=== PATIENT | female | born 1935 | race Caucasian/White ===

== ENCOUNTER 2022-03-20 12:57 | Emergency (ER) | payer OTHER, BC ==
[2022-03-20 13:11] VITALS: BMI 28.5
[2022-03-20 16:04] LABS: BASO % 0.3 % (0-2.0); EOS % 2.6 % (0-4.5); HEMATOCRIT 38.8 % (32.4-45.2); HEMOGLOBIN 13.1 GM/dL (10.7-15.3); LYMPH % 22.3 % (8-40); MCH 29.7 pg (25.7-33.7); MCHC 33.8 g/dl (32.0-36.0); MEAN CELL VOLUME 87.9 fl (80-96); MEAN PLT VOLUME 7.1 fl (7.5-11.1); MONO % 9.3 % (3.8-10.2); NEUT % 65.5 % (42.8-82.8); PLATELET COUNT 223 10^3/uL (134-434); RBC 4.41 M/mm3 (3.60-5.2); RDW 13.4 % (11.6-15.6); WHITE BLOOD COUNT 6.9 K/mm3 (4.0-10.0)
[2022-03-20 16:21] LABS: ALBUMIN 3.5 g/dl (3.4-5.0); CALCIUM 9.9 mg/dL (8.5-10.1)
[2022-03-20 16:22] LABS: BLOOD UREA NITROGEN 13.3 mg/dL (7-18); MAGNESIUM 2.3 mg/dL (1.8-2.4)
[2022-03-20 16:24] LABS: CREATININE 0.7 mg/dL (0.55-1.3)
[2022-03-20 16:26] LABS: BILIRUBIN,TOTAL 0.4 mg/dL (0.2-1); TOT PROT 7.2 g/dl (6.4-8.2)
[2022-03-20 17:38] LABS: EPI CELLS 12 /uL (0-25.1); HYALINE CASTS 0 /uL (0-3.1); PH,URINE 6.5 (5.0-8.0); URINE APPEARANCE CLEAR; URINE BACTERIA 689 /uL (0-1359); URINE BILIRUBIN NEGATIVE (NEGATIVE); URINE COLOR YELLOW; URINE GLUCOSE (UA) NEGATIVE (NEGATIVE); URINE KETONE NEGATIVE (NEGATIVE); URINE LEUK ESTERASE 2+ (NEGATIVE); URINE NITRITE NEGATIVE (NEGATIVE); URINE PROTEIN NEGATIVE (NEGATIVE); URINE RBC 13 /uL (0-23.9); URINE UROBILINOGEN 0.2 mg/dL (0.2-1.0); URINE WBC 52 /uL (0-25.8)
[2022-03-20 17:39] VITALS: BP 112/74; PULSE 84; TEMP 98.4
== END 2022-03-20 17:39 | disposition home or self-care (01) ==
LOC: JER 12:57
DX: R10.84 Generalized abdominal pain (principal)
CPT/HCPCS: 36415; 74176-TC; 80053; 81003; 83690; 83735; 85025; 87086; 99284-25

== ENCOUNTER 2022-03-27 18:29 | Emergency (ER) | payer OTHER, BC ==
[2022-03-27 18:39] VITALS: BP 113/70; PULSE 97; TEMP 98.7; BMI 27.4
[2022-03-27] MEDS ORDERED: LORazepam 2 MG TABLET PO ONE (19:57)
== END 2022-03-27 20:47 | disposition left against medical advice (07) ==
LOC: JER 18:29
DX: R00.2 Palpitations (principal)
CPT/HCPCS: 71045-TC-FY; 93005; 93010; 99284-25

== ENCOUNTER 2022-08-29 13:53 | Inpatient (IN) | payer OTHER, BC ==
[2022-08-29] MEDS ORDERED: morphine CARPU-JECT 4 MG/1 ML DISP.SYRIN IVPUSH ONE ×2 (14:27→20:44)
[2022-08-29] MEDS ORDERED: SODIUM CHLORIDE 500 ML IV STA (14:27)
[2022-08-29] MEDS ORDERED: morphine SULFATE 4 MG/ML VIAL ONE ×2 (14:31→20:52)
[2022-08-29 17:36] LABS: VENOUS BASE EXCESS -3.9 mmol/L (-2-2); VENOUS O2 SATURATION 28.9 % (70-80); VENOUS PH 7.327 (7.310-7.410)
[2022-08-29 17:46] LABS: HEMATOCRIT 30.6 % (32.4-45.2); HEMOGLOBIN 10.5 GM/dL (10.7-15.3); MCH 32.6 pg (25.7-33.7); MCHC 34.3 g/dl (32.0-36.0); MEAN CELL VOLUME 94.9 fl (80-96); MEAN PLT VOLUME 7.3 fl (7.5-11.1); PLATELET COUNT 126 10^3/uL (134-434); RBC 3.23 M/mm3 (3.60-5.2); RDW 17.9 % (11.6-15.6); WHITE BLOOD COUNT 8.5 K/mm3 (4.0-10.0)
[2022-08-29 17:54] LABS: INR 1.37 (0.83-1.09); PROTHROMBIN TIME (PATIENT) 15.8 SEC (9.7-13.0)
[2022-08-29 17:56] LABS: ACTIVATED PTT 30.7 SECONDS (25.2-36.5)
[2022-08-29 18:03] LABS: ALBUMIN 3.2 g/dl (3.4-5.0); BLOOD UREA NITROGEN 17.5 mg/dL (7-18); MAGNESIUM 1.9 mg/dL (1.8-2.4)
[2022-08-29 18:05] LABS: CREATININE 0.8 mg/dL (0.55-1.3)
[2022-08-29 18:06] LABS: PHOSPHOROUS 3.5 mg/dL (2.5-4.9)
[2022-08-29 18:07] LABS: BILIRUBIN,TOTAL 0.4 mg/dL (0.2-1); TOT PROT 6.7 g/dl (6.4-8.2)
[2022-08-29 18:13] LABS: LACTIC ACID 2.6 mmol/L (0.4-2.0)
[2022-08-29 18:55] LABS: ANISOCYTOSIS 1+; MACROCYTOSIS 0
[2022-08-29 20:12] LABS: BLOOD UREA NITROGEN 20.2 mg/dL (7-18); CALCIUM 9.2 mg/dL (8.5-10.1)
[2022-08-29 20:13] LABS: ALBUMIN 3.6 g/dl (3.4-5.0)
[2022-08-29 20:16] LABS: CREATININE 0.9 mg/dL (0.55-1.3)
[2022-08-29 20:17] LABS: BILIRUBIN,TOTAL 0.4 mg/dL (0.2-1); TOT PROT 6.9 g/dl (6.4-8.2)
[2022-08-29 22:47] LABS: LACTIC ACID 3.7 mmol/L (0.4-2.0)
[2022-08-29] MEDS ORDERED: LACTATED RINGERS SOLUTION 1,000 ML IV SCH (23:00)
[2022-08-29] MEDS ORDERED: ACETAMINOPHEN 1000 MG/100 ML BAG IVPB PRN (23:07)
[2022-08-29] MEDS ORDERED: SODIUM CHLORIDE 1,000 ML IV SCH (23:45)
[2022-08-29] MEDS ORDERED: INSULIN SLIDING SCALE (NOVOLOG) 1 VIAL SQ SCH (23:45)
[2022-08-30] MEDS ORDERED: INSULIN (NOVOLOG) ASPART 100 UNITS/ML 10ML VIAL SQ ONE (00:04)
[2022-08-30] MEDS ORDERED: LORazepam 0.5 MG TABLET PO PRN (01:10)
[2022-08-30 05:18] LABS: LACTIC ACID 3.5 mmol/L (0.4-2.0)
[2022-08-30] MEDS ORDERED: ACETAMINOPHEN INJECTION 100 ML IVPB ONE (05:45)
[2022-08-30] MEDS ORDERED: LORazepam 0.5 MG TABLET ONE (08:24)
[2022-08-30] MEDS ORDERED: LORazepam 2 MG/ML SDV VIAL IVPUSH PRN ×2 (08:49→16:35)
[2022-08-30] MEDS ORDERED: ceFAZolin 2 GRAM PREMIX BAG IVPB ONE (09:15)
[2022-08-30] MEDS ORDERED: APIXABAN 2.5 MG TABLET PO SCH (10:00)
[2022-08-30] MEDS ORDERED: MIDAZOLAM HCL 2 MG/2 ML SINGLE DOSE VIAL ONE (13:19)
[2022-08-30] MEDS ORDERED: ROCURONIUM BROMIDE 50 MG/5 ML SYRINGE ONE ×2 (13:19→14:44)
[2022-08-30] MEDS ORDERED: PROPOFOL 40 ML ONE (13:19)
[2022-08-30] MEDS ORDERED: CEFTRIAXONE 1 GM in DEXTROSE 5%-WATER - 50 ML IVPB ONE (14:00)
[2022-08-30] MEDS ORDERED: cefTRIAXone SODIUM 1 GM VIAL IVPB ONE (14:04)
[2022-08-30] MEDS ORDERED: ONDANSETRON 4 MG/2 ML VIAL ONE (14:49)
[2022-08-30] MEDS ORDERED: POVIDONE-IODINE OINTMENT 10% - 28.4 GM TUBE ONE (15:03)
[2022-08-30] MEDS ORDERED: PROMETHAZINE HCL 25 MG/1 ML VIAL IVPUSH PRN ×2 (15:18→16:35)
[2022-08-30] MEDS ORDERED: ONDANSETRON 4 MG/2 ML VIAL IVPUSH PRN ×4 (15:18→16:35)
[2022-08-30] MEDS ORDERED: NEOSTIGMINE METHYLSULFATE 0.5 MG/ML - 10 ML MDV ONE (15:22)
[2022-08-30] MEDS ORDERED: GLYCOPYRROLATE 0.2 MG/1 ML VIAL ONE (15:22)
[2022-08-30] MEDS ORDERED: PROMETHAZINE HCL 25 MG/1 ML VIAL IVPB PRN ×2 (15:24→16:35)
[2022-08-30] MEDS ORDERED: DEXAMETHASONE SOD PHOSPHATE 4 MG/1 ML VIAL IVPUSH PRN ×2 (15:24→16:35)
[2022-08-30] MEDS ORDERED: LACTATED RINGERS SOLUTION 1,000 ML IV SCH (15:30)
[2022-08-30] MEDS ORDERED: HYDROmorphone *PCA* 10MG/50ML DISP.SYRIN PCA SCH (15:30)
[2022-08-30] MEDS ORDERED: METOPROLOL TARTRATE 5 MG/5 ML VIAL ONE (15:37)
[2022-08-30] MEDS ORDERED: HYDROmorphone *PCA* 10MG/50ML DISP.SYRIN ONE (16:27)
[2022-08-30] MEDS ORDERED: ACETAMINOPHEN 1000 MG/100 ML BAG IVPB PRN (16:35)
[2022-08-30] MEDS ORDERED: HYDROmorphone *PCA* 10MG/50ML DISP.SYRIN PCA ONE (16:35)
[2022-08-30] MEDS ORDERED: LORazepam 0.5 MG TABLET PO SCH (22:00)
[2022-08-30 22:22] VITALS: BMI 24.3
[2022-08-31] MEDS: SODIUM CHLORIDE 1,000 ML IV SCH ×2 (04:12→13:00)
[2022-08-31] MEDS: HEPARIN NA (PORCINE) 5,000 UNITS/ML 1ML VIAL SQ SCH (05:58)
[2022-08-31] MEDS: PIPERACILLIN/TAZOB 3.375 GM 3.375 GM in DEXTROSE 5%-WATER - 50 ML IVPB SCH ×3 (05:58→23:16)
[2022-08-31 07:31] LABS: BASO % 0.1 % (0-2.0); HEMATOCRIT 21.1 % (32.4-45.2); HEMOGLOBIN 7.2 GM/dL (10.7-15.3); LYMPH % 5.6 % (8-40); MCH 32.1 pg (25.7-33.7); MCHC 34.1 g/dl (32.0-36.0); MEAN PLT VOLUME 6.6 fl (7.5-11.1); MONO % 9.8 % (3.8-10.2); NEUT % 84.5 % (42.8-82.8); PLATELET COUNT 90 10^3/uL (134-434); RBC 2.25 M/mm3 (3.60-5.2); RDW 18.2 % (11.6-15.6); WHITE BLOOD COUNT 11.8 K/mm3 (4.0-10.0)
[2022-08-31 07:50] LABS: CALCIUM 8.2 mg/dL (8.5-10.1)
[2022-08-31 07:51] LABS: BLOOD UREA NITROGEN 32.7 mg/dL (7-18); MAGNESIUM 1.9 mg/dL (1.8-2.4)
[2022-08-31 07:54] LABS: BILIRUBIN,TOTAL 0.3 mg/dL (0.2-1); CREATININE 0.9 mg/dL (0.55-1.3); PHOSPHOROUS 3.8 mg/dL (2.5-4.9)
[2022-08-31 07:56] LABS: ALBUMIN 2.3 g/dl (3.4-5.0); TOT PROT 4.8 g/dl (6.4-8.2)
[2022-08-31] MEDS: HYDROmorphone *PCA* 10MG/50ML DISP.SYRIN PCA SCH (17:29)
[2022-08-31 18:26] LABS: BASO % 0.1 % (0-2.0); HEMATOCRIT 28.2 % (32.4-45.2); HEMOGLOBIN 9.8 GM/dL (10.7-15.3); LYMPH % 6.9 % (8-40); MCHC 34.8 g/dl (32.0-36.0); MEAN CELL VOLUME 91.9 fl (80-96); MEAN PLT VOLUME 6.6 fl (7.5-11.1); MONO % 9.1 % (3.8-10.2); NEUT % 83.9 % (42.8-82.8); PLATELET COUNT 79 10^3/uL (134-434); RBC 3.06 M/mm3 (3.60-5.2); RDW 18.5 % (11.6-15.6); WHITE BLOOD COUNT 9.3 K/mm3 (4.0-10.0)
[2022-08-31] MEDS ORDERED: HEPARIN NA (PORCINE) 5,000 UNITS/ML 1ML VIAL SQ SCH (22:00)
[2022-09-01] MEDS: PIPERACILLIN/TAZOB 3.375 GM 3.375 GM in DEXTROSE 5%-WATER - 50 ML IVPB SCH ×3 (06:12→22:19)
[2022-09-01] MEDS ORDERED: LORazepam 2 MG/ML SDV VIAL IVPUSH PRN (08:00)
[2022-09-01] MEDS ORDERED: ACETAMINOPHEN 1000 MG/100 ML BAG IVPB PRN (08:00)
[2022-09-01] MEDS ORDERED: PROMETHAZINE HCL 25 MG/1 ML VIAL IVPB PRN (08:00)
[2022-09-01] MEDS ORDERED: DEXAMETHASONE SOD PHOSPHATE 4 MG/1 ML VIAL IVPUSH PRN (08:00)
[2022-09-01 09:49] LABS: HEMATOCRIT 26.4 % (32.4-45.2); HEMOGLOBIN 9.2 GM/dL (10.7-15.3); LYMPH % 7.6 % (8-40); MCH 31.9 pg (25.7-33.7); MCHC 34.8 g/dl (32.0-36.0); MEAN CELL VOLUME 91.5 fl (80-96); MEAN PLT VOLUME 6.4 fl (7.5-11.1); MONO % 7.8 % (3.8-10.2); NEUT % 84.6 % (42.8-82.8); PLATELET COUNT 77 10^3/uL (134-434); RBC 2.88 M/mm3 (3.60-5.2); RDW 18.4 % (11.6-15.6); WHITE BLOOD COUNT 9.2 K/mm3 (4.0-10.0)
[2022-09-01] MEDS ORDERED: APIXABAN 2.5 MG TABLET PO SCH (10:00)
[2022-09-01 10:16] LABS: ALBUMIN 2.2 g/dl (3.4-5.0); BLOOD UREA NITROGEN 17.5 mg/dL (7-18); CALCIUM 7.8 mg/dL (8.5-10.1); CREATININE 0.5 mg/dL (0.55-1.3)
[2022-09-01 10:18] LABS: BILIRUBIN,TOTAL 0.7 mg/dL (0.2-1); TOT PROT 4.8 g/dl (6.4-8.2)
[2022-09-01] MEDS: APIXABAN 2.5 MG TABLET PO SCH ×4 (11:57→22:19)
[2022-09-01] MEDS: SODIUM CHLORIDE 1,000 ML IV SCH (11:57)
[2022-09-01] MEDS: HYDROmorphone *PCA* 10MG/50ML DISP.SYRIN PCA SCH (23:10)
[2022-09-02] MEDS: PIPERACILLIN/TAZOB 3.375 GM 3.375 GM in DEXTROSE 5%-WATER - 50 ML IVPB SCH ×3 (06:10→21:45)
[2022-09-02] MEDS: HYDROmorphone *PCA* 10MG/50ML DISP.SYRIN PCA SCH ×2 (08:00→16:43)
[2022-09-02 09:39] LABS: BASO % 0.1 % (0-2.0); EOS % 0.2 % (0-4.5); HEMOGLOBIN 10.1 GM/dL (10.7-15.3); LYMPH % 8.2 % (8-40); MCH 31.2 pg (25.7-33.7); MCHC 33.8 g/dl (32.0-36.0); MEAN CELL VOLUME 92.3 fl (80-96); MEAN PLT VOLUME 6.6 fl (7.5-11.1); MONO % 6.3 % (3.8-10.2); NEUT % 85.2 % (42.8-82.8); PLATELET COUNT 92 10^3/uL (134-434); RBC 3.25 M/mm3 (3.60-5.2); RDW 17.9 % (11.6-15.6)
[2022-09-02 10:05] LABS: ALBUMIN 2.5 g/dl (3.4-5.0)
[2022-09-02 10:07] LABS: BLOOD UREA NITROGEN 19.6 mg/dL (7-18); CALCIUM 8.4 mg/dL (8.5-10.1)
[2022-09-02 10:11] LABS: CREATININE 0.6 mg/dL (0.55-1.3)
[2022-09-02 10:12] LABS: TOT PROT 5.5 g/dl (6.4-8.2)
[2022-09-02] MEDS: SODIUM CHLORIDE 1,000 ML IV SCH ×2 (10:37→16:43)
[2022-09-02] MEDS: APIXABAN 2.5 MG TABLET PO SCH (12:07)
[2022-09-02] MEDS: HEPARIN NA (PORCINE) 5,000 UNITS/ML 1ML VIAL SQ SCH (16:38)
[2022-09-02] MEDS: ACETAMINOPHEN 325 MG TABLET (FP) PO SCH ×2 (17:19→21:44)
[2022-09-02] MEDS: APIXABAN 2.5 MG TABLET NGT SCH (21:44)
[2022-09-03] MEDS: ACETAMINOPHEN 325 MG TABLET (FP) PO SCH ×6 (01:39→22:11)
[2022-09-03] MEDS: PIPERACILLIN/TAZOB 3.375 GM 3.375 GM in DEXTROSE 5%-WATER - 50 ML IVPB SCH ×3 (06:08→22:12)
[2022-09-03] MEDS: HYDROmorphone *PCA* 10MG/50ML DISP.SYRIN PCA SCH ×2 (10:24→23:56)
[2022-09-03] MEDS: SODIUM CHLORIDE 1,000 ML IV SCH (10:24)
[2022-09-03] MEDS: APIXABAN 2.5 MG TABLET NGT SCH ×2 (10:24→22:13)
[2022-09-04] MEDS: ACETAMINOPHEN 325 MG TABLET (FP) PO SCH ×7 (01:23→22:14)
[2022-09-04] MEDS ORDERED: MAG HYDROX/AL HYDROX/SIMETH 30 ML UNIT-DOSE CUP PO ONE (03:04)
[2022-09-04] MEDS: SODIUM CHLORIDE 1,000 ML IV SCH ×2 (03:28→20:59)
[2022-09-04] MEDS: PIPERACILLIN/TAZOB 3.375 GM 3.375 GM in DEXTROSE 5%-WATER - 50 ML IVPB SCH ×3 (05:52→22:09)
[2022-09-04] MEDS: HYDROmorphone *PCA* 10MG/50ML DISP.SYRIN PCA SCH (08:00)
[2022-09-04] MEDS: APIXABAN 2.5 MG TABLET NGT SCH ×2 (09:27→22:14)
[2022-09-04 11:21] LABS: BASO % 0.1 % (0-2.0); EOS % 2.6 % (0-4.5); HEMATOCRIT 26.8 % (32.4-45.2); HEMOGLOBIN 9.1 GM/dL (10.7-15.3); LYMPH % 11.2 % (8-40); MCH 31.5 pg (25.7-33.7); MCHC 34.1 g/dl (32.0-36.0); MEAN CELL VOLUME 92.4 fl (80-96); MEAN PLT VOLUME 6.7 fl (7.5-11.1); MONO % 7.9 % (3.8-10.2); NEUT % 78.2 % (42.8-82.8); PLATELET COUNT 89 10^3/uL (134-434); RDW 17.4 % (11.6-15.6); WHITE BLOOD COUNT 5.5 K/mm3 (4.0-10.0)
[2022-09-04 12:14] LABS: CALCIUM 8.4 mg/dL (8.5-10.1)
[2022-09-04 12:15] LABS: ALBUMIN 2.3 g/dl (3.4-5.0); BLOOD UREA NITROGEN 15.7 mg/dL (7-18)
[2022-09-04 12:17] LABS: CREATININE 0.5 mg/dL (0.55-1.3)
[2022-09-04 12:19] LABS: BILIRUBIN,TOTAL 0.9 mg/dL (0.2-1); TOT PROT 5.2 g/dl (6.4-8.2)
[2022-09-04] MEDS: ONDANSETRON 4 MG/2 ML VIAL IVPUSH PRN (20:58)
[2022-09-05] MEDS: ACETAMINOPHEN 325 MG TABLET (FP) PO SCH ×6 (01:46→21:17)
[2022-09-05] MEDS: PIPERACILLIN/TAZOB 3.375 GM 3.375 GM in DEXTROSE 5%-WATER - 50 ML IVPB SCH (06:48)
[2022-09-05] MEDS: LACTOBACILLUS ACIDOPHILUS 1 TABLET PO SCH (09:38)
[2022-09-05] MEDS: APIXABAN 2.5 MG TABLET NGT SCH ×2 (09:39→21:17)
[2022-09-05] MEDS: SODIUM CHLORIDE 1,000 ML IV SCH (09:39)
[2022-09-05 09:56] LABS: BASO % 0.4 % (0-2.0); EOS % 2.4 % (0-4.5); HEMATOCRIT 28.8 % (32.4-45.2); HEMOGLOBIN 9.9 GM/dL (10.7-15.3); MCH 31.5 pg (25.7-33.7); MCHC 34.4 g/dl (32.0-36.0); MEAN CELL VOLUME 91.8 fl (80-96); MEAN PLT VOLUME 6.9 fl (7.5-11.1); MONO % 5.3 % (3.8-10.2); NEUT % 80.9 % (42.8-82.8); PLATELET COUNT 101 10^3/uL (134-434); RBC 3.14 M/mm3 (3.60-5.2); RDW 17.2 % (11.6-15.6); WHITE BLOOD COUNT 5.7 K/mm3 (4.0-10.0)
[2022-09-05 10:26] LABS: BLOOD UREA NITROGEN 10.4 mg/dL (7-18); CALCIUM 8.2 mg/dL (8.5-10.1)
[2022-09-05 10:27] LABS: ALBUMIN 2.4 g/dl (3.4-5.0); MAGNESIUM 1.6 mg/dL (1.8-2.4)
[2022-09-05 10:30] LABS: BILIRUBIN,TOTAL 0.8 mg/dL (0.2-1); CREATININE 0.5 mg/dL (0.55-1.3)
[2022-09-05 10:31] LABS: TOT PROT 5.5 g/dl (6.4-8.2)
[2022-09-05] MEDS: oxyCODONE HCL 5 MG TABLET PO PRN (14:30)
[2022-09-05] MEDS: ACETAMINOPHEN 325 MG TABLET (FP) PO PRN (14:31)
[2022-09-06] MEDS ORDERED: MELATONIN 5 MG TABLETS PO ONE ×2 (00:20→23:13)
[2022-09-06] MEDS: ACETAMINOPHEN 325 MG TABLET (FP) PO SCH ×3 (00:38→10:12)
[2022-09-06] MEDS: oxyCODONE HCL 5 MG TABLET PO PRN ×3 (09:19→20:22)
[2022-09-06 10:07] LABS: BASO % 0.5 % (0-2.0); EOS % 2.8 % (0-4.5); HEMATOCRIT 20.7 % (32.4-45.2); HEMOGLOBIN 7.3 GM/dL (10.7-15.3); LYMPH % 16.3 % (8-40); MCH 32.2 pg (25.7-33.7); MCHC 35.2 g/dl (32.0-36.0); MEAN CELL VOLUME 91.4 fl (80-96); MEAN PLT VOLUME 7.1 fl (7.5-11.1); MONO % 7.6 % (3.8-10.2); NEUT % 72.8 % (42.8-82.8); PLATELET COUNT 88 10^3/uL (134-434); RBC 2.26 M/mm3 (3.60-5.2); RDW 16.9 % (11.6-15.6)
[2022-09-06] MEDS: APIXABAN 2.5 MG TABLET NGT SCH (10:12)
[2022-09-06] MEDS: LACTOBACILLUS ACIDOPHILUS 1 TABLET PO SCH (10:12)
[2022-09-06] MEDS: SODIUM CHLORIDE 1,000 ML IV SCH (10:14)
[2022-09-06 10:31] LABS: CALCIUM 7.8 mg/dL (8.5-10.1)
[2022-09-06 10:32] LABS: BLOOD UREA NITROGEN 16.4 mg/dL (7-18)
[2022-09-06 10:34] LABS: MAGNESIUM 1.5 mg/dL (1.8-2.4)
[2022-09-06 10:36] LABS: ALBUMIN 2.1 g/dl (3.4-5.0)
[2022-09-06 10:37] LABS: CREATININE 0.3 mg/dL (0.55-1.3)
[2022-09-06 10:38] LABS: PHOSPHOROUS 1.8 mg/dL (2.5-4.9)
[2022-09-06 10:39] LABS: BILIRUBIN,TOTAL 0.4 mg/dL (0.2-1); TOT PROT 4.7 g/dl (6.4-8.2)
[2022-09-06] MEDS ORDERED: MAGNESIUM SULF 50% (8.12 MEQ/2 ML-1 GM VIAL) IVPB ONE (13:06)
[2022-09-06] MEDS ORDERED: POTASSIUM PHOSPHATE 30 MM in SODIUM CHLORIDE 500 ML IVPB ONE (13:06)
[2022-09-06] MEDS ORDERED: PSYLLIUM 5.85 GM PACKET PO SCH (14:00)
[2022-09-06] MEDS ORDERED: MAGNESIUM 2GM/50ML STERILE WATER IVPB IVPB ONE (14:30)
[2022-09-06] MEDS: ACETAMINOPHEN 325 MG TABLET (FP) PO PRN (15:13)
[2022-09-06 15:48] LABS: BASO % 0.3 % (0-2.0); HEMATOCRIT 21.1 % (32.4-45.2); HEMOGLOBIN 7.3 GM/dL (10.7-15.3); LYMPH % 15.4 % (8-40); MCH 31.7 pg (25.7-33.7); MCHC 34.3 g/dl (32.0-36.0); MEAN CELL VOLUME 92.2 fl (80-96); MONO % 9.6 % (3.8-10.2); NEUT % 72.7 % (42.8-82.8); PLATELET COUNT 82 10^3/uL (134-434); RBC 2.29 M/mm3 (3.60-5.2); RDW 16.9 % (11.6-15.6); WHITE BLOOD COUNT 4.2 K/mm3 (4.0-10.0)
[2022-09-06] MEDS: PANTOPRAZOLE SODIUM 40 MG VIAL IVPUSH SCH (22:58)
[2022-09-07] MEDS: oxyCODONE HCL 5 MG TABLET PO PRN ×3 (02:41→20:13)
[2022-09-07] MEDS: ACETAMINOPHEN 325 MG TABLET (FP) PO PRN (06:48)
[2022-09-07] MEDS: LACTOBACILLUS ACIDOPHILUS 1 TABLET PO SCH (09:37)
[2022-09-07] MEDS: PANTOPRAZOLE SODIUM 40 MG VIAL IVPUSH SCH ×2 (09:37→22:14)
[2022-09-07] MEDS ORDERED: oxyCODONE HCL 5 MG TABLET PO ONE (12:45)
[2022-09-07 13:09] LABS: BASO % 0.6 % (0-2.0); HEMATOCRIT 27.5 % (32.4-45.2); HEMOGLOBIN 9.6 GM/dL (10.7-15.3); LYMPH % 18.7 % (8-40); MCH 31.5 pg (25.7-33.7); MEAN CELL VOLUME 89.9 fl (80-96); MEAN PLT VOLUME 7.3 fl (7.5-11.1); MONO % 6.7 % (3.8-10.2); PLATELET COUNT 80 10^3/uL (134-434); RBC 3.06 M/mm3 (3.60-5.2); RDW 16.2 % (11.6-15.6); WHITE BLOOD COUNT 5.5 K/mm3 (4.0-10.0)
[2022-09-07 13:20] LABS: ALBUMIN 2.3 g/dl (3.4-5.0); BLOOD UREA NITROGEN 17.5 mg/dL (7-18); CALCIUM 8.1 mg/dL (8.5-10.1); MAGNESIUM 1.7 mg/dL (1.8-2.4)
[2022-09-07 13:24] LABS: CREATININE 0.4 mg/dL (0.55-1.3); PHOSPHOROUS 2.3 mg/dL (2.5-4.9)
[2022-09-07 13:25] LABS: BILIRUBIN,TOTAL 1.9 mg/dL (0.2-1); TOT PROT 4.9 g/dl (6.4-8.2)
[2022-09-07] MEDS ORDERED: POTASSIUM PHOSPHATE 15 MM in SODIUM CHLORIDE 250 ML IVPB ONE (13:26)
[2022-09-07] MEDS ORDERED: MAGNESIUM SULF 50% (8.12 MEQ/2 ML-1 GM VIAL) IVPB ONE (13:30)
[2022-09-07] MEDS ORDERED: ACETAMINOPHEN 325 MG TABLET (FP) PO PRN (14:35)
[2022-09-07] MEDS ORDERED: POTASSIUM PHOSPHATE 15 MM in DEXTROSE 5%-WATER - 250 ML IVPB ONE (15:00)
[2022-09-07] MEDS ORDERED: ACETAMINOPHEN 1000 MG/100 ML BAG IVPB ONE (23:59)
[2022-09-08] MEDS ORDERED: MELATONIN 5 MG TABLETS PO ONE
[2022-09-08] MEDS: ONDANSETRON 4 MG/2 ML VIAL IVPUSH PRN (06:22)
[2022-09-08] MEDS: PANTOPRAZOLE SODIUM 40 MG VIAL IVPUSH SCH ×2 (09:42→21:36)
[2022-09-08] MEDS: LACTOBACILLUS ACIDOPHILUS 1 TABLET PO SCH (09:43)
[2022-09-08] MEDS: oxyCODONE HCL 5 MG TABLET PO PRN ×4 (09:55→23:50)
[2022-09-08 10:06] LABS: BASO % 0.4 % (0-2.0); EOS % 1.7 % (0-4.5); HEMATOCRIT 25.8 % (32.4-45.2); HEMOGLOBIN 9.1 GM/dL (10.7-15.3); LYMPH % 14.4 % (8-40); MCH 31.8 pg (25.7-33.7); MCHC 35.2 g/dl (32.0-36.0); MEAN CELL VOLUME 90.1 fl (80-96); MEAN PLT VOLUME 7.3 fl (7.5-11.1); MONO % 6.3 % (3.8-10.2); NEUT % 77.2 % (42.8-82.8); PLATELET COUNT 87 10^3/uL (134-434); RBC 2.86 M/mm3 (3.60-5.2); RDW 15.9 % (11.6-15.6); WHITE BLOOD COUNT 5.9 K/mm3 (4.0-10.0)
[2022-09-08 10:20] LABS: CALCIUM 8.3 mg/dL (8.5-10.1)
[2022-09-08 10:21] LABS: ALBUMIN 2.3 g/dl (3.4-5.0); BLOOD UREA NITROGEN 11.9 mg/dL (7-18)
[2022-09-08 10:23] LABS: PHOSPHOROUS 2.6 mg/dL (2.5-4.9)
[2022-09-08 10:24] LABS: BILIRUBIN,TOTAL 0.7 mg/dL (0.2-1); CREATININE 0.4 mg/dL (0.55-1.3)
[2022-09-08 16:32] LABS: PH,URINE 6.5 (5.0-8.0); URINE APPEARANCE CLEAR; URINE BILIRUBIN NEGATIVE (NEGATIVE); URINE COLOR YELLOW; URINE GLUCOSE (UA) NEGATIVE (NEGATIVE); URINE KETONE NEGATIVE (NEGATIVE); URINE LEUK ESTERASE NEGATIVE (NEGATIVE); URINE NITRITE NEGATIVE (NEGATIVE); URINE PROTEIN NEGATIVE (NEGATIVE)
[2022-09-08 16:38] LABS: EPI CELLS 17 /uL (0-25.1); HYALINE CASTS 0 /uL (0-3.1); URINE BACTERIA 57 /uL (0-1359); URINE RBC 11 /uL (0-23.9); URINE WBC 4 /uL (0-25.8)
[2022-09-09] MEDS: oxyCODONE HCL 5 MG TABLET PO PRN ×4 (03:37→17:29)
[2022-09-09] MEDS: ACETAMINOPHEN 325 MG TABLET (FP) PO SCH ×3 (09:12→19:57)
[2022-09-09] MEDS: PANTOPRAZOLE SODIUM 40 MG VIAL IVPUSH SCH (09:12)
[2022-09-09] MEDS: POLYETHYLENE GLYCOL (HEALTHYLAX) 3350 17 GM PACKET PO SCH ×2 (09:12→10:05)
[2022-09-09] MEDS: SIMETHICONE 80 MG TAB.CHEW (FP) PO SCH ×4 (09:13→21:38)
[2022-09-09] MEDS: LACTOBACILLUS ACIDOPHILUS 1 TABLET PO SCH (09:13)
[2022-09-09] MEDS: DOCUSATE SODIUM 100 MG CAPSULE (FP) PO SCH ×3 (09:13→21:37)
[2022-09-09] MEDS ORDERED: oxyCODONE HCL 5 MG TABLET PO PRN (11:30)
[2022-09-09] MEDS: traMADol HCL 50 MG TABLET PO PRN (21:38)
[2022-09-09] MEDS: APIXABAN 2.5 MG TABLET PO SCH (21:40)
[2022-09-10] MEDS: oxyCODONE HCL 5 MG TABLET PO PRN ×4 (00:10→23:33)
[2022-09-10] MEDS: ACETAMINOPHEN 325 MG TABLET (FP) PO SCH ×4 (02:11→20:17)
[2022-09-10 09:51] LABS: BASO % 0.5 % (0-2.0); EOS % 2.1 % (0-4.5); HEMATOCRIT 26.5 % (32.4-45.2); HEMOGLOBIN 9.3 GM/dL (10.7-15.3); LYMPH % 13.9 % (8-40); MCH 32.5 pg (25.7-33.7); MCHC 35.1 g/dl (32.0-36.0); MEAN CELL VOLUME 92.9 fl (80-96); MEAN PLT VOLUME 7.5 fl (7.5-11.1); MONO % 6.8 % (3.8-10.2); NEUT % 76.7 % (42.8-82.8); PLATELET COUNT 98 10^3/uL (134-434); RBC 2.85 M/mm3 (3.60-5.2); RDW 16.2 % (11.6-15.6); WHITE BLOOD COUNT 6.6 K/mm3 (4.0-10.0)
[2022-09-10 09:56] LABS: CALCIUM 8.7 mg/dL (8.5-10.1)
[2022-09-10 09:57] LABS: ALBUMIN 2.7 g/dl (3.4-5.0); MAGNESIUM 1.8 mg/dL (1.8-2.4)
[2022-09-10 10:00] LABS: CREATININE 0.5 mg/dL (0.55-1.3)
[2022-09-10] MEDS ORDERED: LORazepam 0.5 MG TABLET PO SCH (10:00)
[2022-09-10 10:02] LABS: BILIRUBIN,TOTAL 0.5 mg/dL (0.2-1); TOT PROT 5.6 g/dl (6.4-8.2)
[2022-09-10] MEDS: LACTATED RINGERS SOLUTION 1,000 ML/1,000 ML INFUS.BAG IV SCH (11:11)
[2022-09-10] MEDS: POLYETHYLENE GLYCOL (HEALTHYLAX) 3350 17 GM PACKET PO SCH (11:12)
[2022-09-10] MEDS: SIMETHICONE 80 MG TAB.CHEW (FP) PO SCH ×4 (11:13→21:36)
[2022-09-10] MEDS: PANTOPRAZOLE 40 MG TABLET PO SCH (11:13)
[2022-09-10] MEDS: LORazepam 0.5 MG TABLET PO SCH ×2 (11:13→21:36)
[2022-09-10] MEDS: DOCUSATE SODIUM 100 MG CAPSULE (FP) PO SCH ×2 (11:13→21:36)
[2022-09-10] MEDS: APIXABAN 2.5 MG TABLET PO SCH ×2 (11:13→21:36)
[2022-09-10] MEDS: LACTOBACILLUS ACIDOPHILUS 1 TABLET PO SCH (11:13)
[2022-09-10] MEDS: traMADol HCL 50 MG TABLET PO PRN ×2 (11:52→18:14)
[2022-09-10 22:11] VITALS: RESP 20
[2022-09-11] MEDS: LACTATED RINGERS SOLUTION 1,000 ML/1,000 ML INFUS.BAG IV SCH (01:04)
[2022-09-11] MEDS: ACETAMINOPHEN 325 MG TABLET (FP) PO SCH ×4 (02:10→22:56)
[2022-09-11] MEDS: oxyCODONE HCL 5 MG TABLET PO PRN ×3 (08:09→20:24)
[2022-09-11 09:18] LABS: BASO % 0.4 % (0-2.0); EOS % 1.6 % (0-4.5); HEMATOCRIT 24.7 % (32.4-45.2); HEMOGLOBIN 8.7 GM/dL (10.7-15.3); LYMPH % 11.1 % (8-40); MCH 32.5 pg (25.7-33.7); MEAN CELL VOLUME 92.7 fl (80-96); MEAN PLT VOLUME 7.6 fl (7.5-11.1); NEUT % 79.9 % (42.8-82.8); PLATELET COUNT 98 10^3/uL (134-434); RBC 2.67 M/mm3 (3.60-5.2); RDW 16.3 % (11.6-15.6); WHITE BLOOD COUNT 6.1 K/mm3 (4.0-10.0)
[2022-09-11] MEDS: LACTOBACILLUS ACIDOPHILUS 1 TABLET PO SCH (09:26)
[2022-09-11] MEDS: APIXABAN 2.5 MG TABLET PO SCH ×2 (09:26→22:58)
[2022-09-11] MEDS: LORazepam 0.5 MG TABLET PO SCH ×2 (09:26→22:57)
[2022-09-11] MEDS: POLYETHYLENE GLYCOL (HEALTHYLAX) 3350 17 GM PACKET PO SCH ×3 (09:26→22:59)
[2022-09-11] MEDS: DOCUSATE SODIUM 100 MG CAPSULE (FP) PO SCH ×2 (09:26→22:58)
[2022-09-11] MEDS: PANTOPRAZOLE 40 MG TABLET PO SCH (09:26)
[2022-09-11] MEDS: traMADol HCL 50 MG TABLET PO PRN (22:58)
[2022-09-12] MEDS: ACETAMINOPHEN 325 MG TABLET (FP) PO SCH ×4 (02:52→19:56)
[2022-09-12] MEDS: oxyCODONE HCL 5 MG TABLET PO PRN ×3 (02:53→22:32)
[2022-09-12] MEDS: POLYETHYLENE GLYCOL (HEALTHYLAX) 3350 17 GM PACKET PO SCH ×3 (05:47→22:33)
[2022-09-12 09:34] LABS: BASO % 0.8 % (0-2.0); EOS % 1.6 % (0-4.5); HEMATOCRIT 23.3 % (32.4-45.2); HEMOGLOBIN 7.9 GM/dL (10.7-15.3); LYMPH % 13.7 % (8-40); MCH 31.9 pg (25.7-33.7); MCHC 34.1 g/dl (32.0-36.0); MEAN CELL VOLUME 93.7 fl (80-96); MEAN PLT VOLUME 8.6 fl (7.5-11.1); MONO % 6.6 % (3.8-10.2); NEUT % 77.3 % (42.8-82.8); PLATELET COUNT 112 10^3/uL (134-434); RBC 2.49 M/mm3 (3.60-5.2); RDW 16.2 % (11.6-15.6)
[2022-09-12 09:55] LABS: BLOOD UREA NITROGEN 17.8 mg/dL (7-18)
[2022-09-12] MEDS: APIXABAN 2.5 MG TABLET PO SCH ×2 (09:55→22:32)
[2022-09-12] MEDS: DOCUSATE SODIUM 100 MG CAPSULE (FP) PO SCH ×2 (09:55→22:33)
[2022-09-12] MEDS: PANTOPRAZOLE 40 MG TABLET PO SCH (09:55)
[2022-09-12] MEDS: LORazepam 0.5 MG TABLET PO SCH ×2 (09:55→22:32)
[2022-09-12] MEDS: LACTOBACILLUS ACIDOPHILUS 1 TABLET PO SCH (09:55)
[2022-09-12 09:59] LABS: CALCIUM 8.2 mg/dL (8.5-10.1); MAGNESIUM 1.8 mg/dL (1.8-2.4)
[2022-09-12 10:01] LABS: CREATININE 0.6 mg/dL (0.55-1.3)
[2022-09-12 10:05] LABS: PHOSPHOROUS 2.4 mg/dL (2.5-4.9)
[2022-09-12] MEDS: traMADol HCL 50 MG TABLET PO PRN (15:17)
[2022-09-13] MEDS: ACETAMINOPHEN 325 MG TABLET (FP) PO SCH ×4 (02:29→13:21)
[2022-09-13] MEDS: oxyCODONE HCL 5 MG TABLET PO PRN ×3 (04:49→16:40)
[2022-09-13] MEDS: POLYETHYLENE GLYCOL (HEALTHYLAX) 3350 17 GM PACKET PO SCH ×2 (05:03→13:21)
[2022-09-13] MEDS: APIXABAN 2.5 MG TABLET PO SCH (09:52)
[2022-09-13] MEDS: PANTOPRAZOLE 40 MG TABLET PO SCH (09:52)
[2022-09-13] MEDS: DOCUSATE SODIUM 100 MG CAPSULE (FP) PO SCH (09:52)
[2022-09-13] MEDS: LACTOBACILLUS ACIDOPHILUS 1 TABLET PO SCH (09:52)
[2022-09-13] MEDS: LORazepam 0.5 MG TABLET PO SCH (09:52)
[2022-09-13 10:25] LABS: BASO % 0.4 % (0-2.0); EOS % 3.8 % (0-4.5); HEMOGLOBIN 7.9 GM/dL (10.7-15.3); LYMPH % 23.3 % (8-40); MCH 32.1 pg (25.7-33.7); MCHC 34.4 g/dl (32.0-36.0); MEAN CELL VOLUME 93.4 fl (80-96); MEAN PLT VOLUME 7.6 fl (7.5-11.1); NEUT % 58.5 % (42.8-82.8); PLATELET COUNT 113 10^3/uL (134-434); RBC 2.46 M/mm3 (3.60-5.2); RDW 16.1 % (11.6-15.6); WHITE BLOOD COUNT 2.8 K/mm3 (4.0-10.0)
[2022-09-13 10:33] VITALS: TEMP 97.6
[2022-09-13 12:39] LABS: ALBUMIN 2.3 g/dl (3.4-5.0); BILIRUBIN,TOTAL 0.4 mg/dL (0.2-1); BLOOD UREA NITROGEN 16.1 mg/dL (7-18); CALCIUM 8.5 mg/dL (8.5-10.1); CREATININE 0.5 mg/dL (0.55-1.3); TOT PROT 5.3 g/dl (6.4-8.2)
[2022-09-13] MEDS: traMADol HCL 50 MG TABLET PO PRN (13:55)
[2022-09-13 16:15] VITALS: BP 115/62; PULSE 98
== END 2022-09-13 18:33 | disposition home health service (06) | DRG 330 ==
LOC: JER 13:53 → JERBED 18:20 → JICU 08-30 20:56 → J8W 08-31 20:50
PROVIDERS: ADMIT Internal Medicine
PROC: 0DTH0ZZ Resection of Cecum, Open Approach (ICD-10-PCS; principal; 2022-08-30 12:00)
PROC: 30233N1 Transfusion of Nonautologous Red Blood Cells into Peripheral Vein, Percutaneous Approach (ICD-10-PCS; 2022-08-31)
DX: K56.2 Volvulus (principal); D62 Acute posthemorrhagic anemia; K92.1 Melena; R64 Cachexia; C54.1 Malignant neoplasm of endometrium; D63.0 Anemia in neoplastic disease; D69.6 Thrombocytopenia, unspecified; R19.00 Intra-abdominal and pelvic swelling, mass and lump, unspecified site; F41.8 Other specified anxiety disorders; K59.00 Constipation, unspecified; E78.5 Hyperlipidemia, unspecified; Z68.24 Body mass index [BMI] 24.0-24.9, adult
CPT/HCPCS: 36415; 36430; 71045-TC-FY; 74018-TC-FY; 74175-TC; 76705-TC; 80048; 80053; 81003; 82272; 82803; 82962; 83605; 83690; 83735; 84100; 84484; 85025; 85610; 85730; 86850; 86900; 86901; 86922; 87086; 87186; 87324; 87449; 88307-TC; 93005; 93010; 94010; 94760; 97116-GP; 97161-GP; 99291; C9803-CS; J1644; P9058; Q9967; U0003; U0005

== ENCOUNTER 2022-09-17 10:06 | Inpatient (IN) | payer OTHER, BC ==
[2022-09-17] MEDS ORDERED: ONDANSETRON 4 MG/2 ML VIAL IVPUSH ONE (10:42)
[2022-09-17] MEDS ORDERED: morphine CARPU-JECT 4 MG/1 ML DISP.SYRIN IVPUSH ONE (10:42)
[2022-09-17] MEDS ORDERED: ONDANSETRON 4 MG/2 ML VIAL ONE (11:00)
[2022-09-17] MEDS ORDERED: morphine SULFATE 4 MG/ML VIAL ONE (11:00)
[2022-09-17 11:19] LABS: BASO % 0.2 % (0-2.0); EOS % 0.6 % (0-4.5); HEMATOCRIT 26.4 % (32.4-45.2); HEMOGLOBIN 9.1 GM/dL (10.7-15.3); LYMPH % 17.3 % (8-40); MCH 31.9 pg (25.7-33.7); MCHC 34.3 g/dl (32.0-36.0); MEAN PLT VOLUME 6.7 fl (7.5-11.1); MONO % 13.6 % (3.8-10.2); NEUT % 68.3 % (42.8-82.8); PLATELET COUNT 194 10^3/uL (134-434); RBC 2.84 M/mm3 (3.60-5.2); RDW 16.4 % (11.6-15.6); WHITE BLOOD COUNT 3.6 K/mm3 (4.0-10.0)
[2022-09-17 11:26] LABS: INR 1.34 (0.83-1.09); PROTHROMBIN TIME (PATIENT) 15.4 SEC (9.7-13.0)
[2022-09-17 11:28] LABS: ACTIVATED PTT 34.8 SECONDS (25.2-36.5)
[2022-09-17 11:46] LABS: CALCIUM 8.7 mg/dL (8.5-10.1)
[2022-09-17 11:48] LABS: BLOOD UREA NITROGEN 18.8 mg/dL (7-18)
[2022-09-17 11:50] LABS: CREATININE 0.5 mg/dL (0.55-1.3)
[2022-09-17 11:52] LABS: BILIRUBIN,TOTAL 0.3 mg/dL (0.2-1); TOT PROT 6.6 g/dl (6.4-8.2)
[2022-09-17 11:55] LABS: ALBUMIN 2.9 g/dl (3.4-5.0)
[2022-09-17] MEDS ORDERED: morphine CARPU-JECT 2 MG/1 ML DISP.SYRIN IVPUSH ONE (11:56)
[2022-09-17] MEDS ORDERED: ACETAMINOPHEN 1000 MG/100 ML BAG IVPB ONE (15:26)
[2022-09-17] MEDS ORDERED: ACETAMINOPHEN INJECTION 100 ML IVPB ONE (15:28)
[2022-09-17] MEDS: DOCUSATE SODIUM 100 MG CAPSULE (FP) PO SCH (22:32)
[2022-09-17] MEDS: APIXABAN 2.5 MG TABLET PO SCH (22:32)
[2022-09-17] MEDS: POLYETHYLENE GLYCOL (HEALTHYLAX) 3350 17 GM PACKET PO SCH (22:34)
[2022-09-18] MEDS: LORazepam 0.5 MG TABLET PO PRN (02:28)
[2022-09-18] MEDS: POLYETHYLENE GLYCOL (HEALTHYLAX) 3350 17 GM PACKET PO SCH ×3 (06:36→22:02)
[2022-09-18 08:29] LABS: BASO % 0.6 % (0-2.0); LYMPH % 22.6 % (8-40); MCH 32.1 pg (25.7-33.7); MCHC 34.9 g/dl (32.0-36.0); MEAN CELL VOLUME 91.9 fl (80-96); MEAN PLT VOLUME 6.9 fl (7.5-11.1); MONO % 14.3 % (3.8-10.2); NEUT % 60.5 % (42.8-82.8); PLATELET COUNT 165 10^3/uL (134-434); RBC 2.51 M/mm3 (3.60-5.2); WHITE BLOOD COUNT 3.1 K/mm3 (4.0-10.0)
[2022-09-18] MEDS: ONDANSETRON 4 MG/2 ML VIAL IVPUSH PRN (08:42)
[2022-09-18 08:46] LABS: CALCIUM 8.5 mg/dL (8.5-10.1)
[2022-09-18 08:47] LABS: ALBUMIN 2.4 g/dl (3.4-5.0); BLOOD UREA NITROGEN 13.8 mg/dL (7-18); MAGNESIUM 1.9 mg/dL (1.8-2.4)
[2022-09-18 08:49] LABS: CREATININE 0.5 mg/dL (0.55-1.3)
[2022-09-18 08:51] LABS: BILIRUBIN,TOTAL 0.4 mg/dL (0.2-1); TOT PROT 5.5 g/dl (6.4-8.2)
[2022-09-18] MEDS: APIXABAN 2.5 MG TABLET PO SCH ×2 (09:37→22:01)
[2022-09-18] MEDS: LACTOBACILLUS ACIDOPHILUS 1 TABLET PO SCH (09:37)
[2022-09-18] MEDS: DOCUSATE SODIUM 100 MG CAPSULE (FP) PO SCH ×2 (09:37→22:01)
[2022-09-18] MEDS: oxyCODONE HCL 5 MG TABLET PO PRN ×3 (10:08→22:01)
[2022-09-18] MEDS ORDERED: SIMETHICONE 80 MG TAB.CHEW (FP) PO PRN (17:21)
[2022-09-18] MEDS: MAG HYDROX/AL HYDROX/SIMETH 30 ML UNIT-DOSE CUP PO SCH (18:16)
[2022-09-19] MEDS: MAG HYDROX/AL HYDROX/SIMETH 30 ML UNIT-DOSE CUP PO SCH ×4 (00:36→17:46)
[2022-09-19] MEDS: POLYETHYLENE GLYCOL (HEALTHYLAX) 3350 17 GM PACKET PO SCH ×3 (06:28→21:56)
[2022-09-19] MEDS: DOCUSATE SODIUM 100 MG CAPSULE (FP) PO SCH ×3 (09:05→21:55)
[2022-09-19] MEDS: APIXABAN 2.5 MG TABLET PO SCH (09:05)
[2022-09-19] MEDS: LACTOBACILLUS ACIDOPHILUS 1 TABLET PO SCH (09:06)
[2022-09-19] MEDS: ONDANSETRON 4 MG/2 ML VIAL IVPUSH PRN (09:06)
[2022-09-19] MEDS: oxyCODONE HCL 5 MG TABLET PO PRN ×2 (11:33→18:57)
[2022-09-19] MEDS: LACTATED RINGERS SOLUTION 1,000 ML/1,000 ML INFUS.BAG IV SCH (19:05)
[2022-09-19 19:48] LABS: BASO % 0.2 % (0-2.0); EOS % 1.1 % (0-4.5); HEMATOCRIT 25.5 % (32.4-45.2); HEMOGLOBIN 8.6 GM/dL (10.7-15.3); LYMPH % 16.2 % (8-40); MCHC 33.5 g/dl (32.0-36.0); MEAN CELL VOLUME 92.7 fl (80-96); MEAN PLT VOLUME 7.1 fl (7.5-11.1); MONO % 9.2 % (3.8-10.2); NEUT % 73.3 % (42.8-82.8); PLATELET COUNT 237 10^3/uL (134-434); RBC 2.75 M/mm3 (3.60-5.2); RDW 16.4 % (11.6-15.6); WHITE BLOOD COUNT 6.1 K/mm3 (4.0-10.0)
[2022-09-20] MEDS: MAG HYDROX/AL HYDROX/SIMETH 30 ML UNIT-DOSE CUP PO SCH ×4 (00:11→17:42)
[2022-09-20] MEDS: LACTATED RINGERS SOLUTION 1,000 ML/1,000 ML INFUS.BAG IV SCH ×2 (06:36→21:59)
[2022-09-20] MEDS: POLYETHYLENE GLYCOL (HEALTHYLAX) 3350 17 GM PACKET PO SCH ×3 (07:13→21:59)
[2022-09-20 07:20] LABS: WHITE BLOOD COUNT 5.4 K/mm3 (4.0-10.0)
[2022-09-20 07:28] LABS: BASO % 0.2 % (0-2.0); EOS % 0.8 % (0-4.5); HEMATOCRIT 23.4 % (32.4-45.2); LYMPH % 16.5 % (8-40); MCH 31.4 pg (25.7-33.7); MCHC 34.1 g/dl (32.0-36.0); MEAN PLT VOLUME 7.2 fl (7.5-11.1); MONO % 9.8 % (3.8-10.2); NEUT % 72.7 % (42.8-82.8); PLATELET COUNT 184 10^3/uL (134-434); RBC 2.55 M/mm3 (3.60-5.2); RDW 16.1 % (11.6-15.6)
[2022-09-20 07:44] LABS: ALBUMIN 2.6 g/dl (3.4-5.0); BLOOD UREA NITROGEN 18.7 mg/dL (7-18); CALCIUM 8.8 mg/dL (8.5-10.1)
[2022-09-20 07:48] LABS: CREATININE 0.5 mg/dL (0.55-1.3)
[2022-09-20 07:49] LABS: BILIRUBIN,TOTAL 1.1 mg/dL (0.2-1); TOT PROT 5.7 g/dl (6.4-8.2)
[2022-09-20] MEDS: LORazepam 0.5 MG TABLET PO PRN ×2 (08:23→17:43)
[2022-09-20 09:06] LABS: ANISOCYTOSIS 0; MACROCYTOSIS 0
[2022-09-20] MEDS: LACTOBACILLUS ACIDOPHILUS 1 TABLET PO SCH (09:13)
[2022-09-20] MEDS: DOCUSATE SODIUM 100 MG CAPSULE (FP) PO SCH ×2 (09:13→21:59)
[2022-09-20] MEDS: PORTA CATH FLUSH 10 ML IVPUSH PRN ×2 (10:00→17:56)
[2022-09-20] MEDS: ONDANSETRON 4 MG/2 ML VIAL IVPUSH PRN (14:46)
[2022-09-20 15:18] LABS: BODY FLUID MONOCYTE 6 %
[2022-09-20] MEDS: oxyCODONE HCL 5 MG TABLET PO PRN (17:43)
[2022-09-20] MEDS: APIXABAN 2.5 MG TABLET PO SCH (21:59)
[2022-09-21] MEDS: MAG HYDROX/AL HYDROX/SIMETH 30 ML UNIT-DOSE CUP PO SCH ×5 (01:05→19:09)
[2022-09-21] MEDS: oxyCODONE HCL 5 MG TABLET PO PRN (01:57)
[2022-09-21] MEDS: POLYETHYLENE GLYCOL (HEALTHYLAX) 3350 17 GM PACKET PO SCH ×3 (06:05→22:21)
[2022-09-21] MEDS: LORazepam 0.5 MG TABLET PO PRN ×2 (08:21→20:14)
[2022-09-21] MEDS: LACTOBACILLUS ACIDOPHILUS 1 TABLET PO SCH (10:20)
[2022-09-21] MEDS: DOCUSATE SODIUM 100 MG CAPSULE (FP) PO SCH ×2 (10:21→22:21)
[2022-09-21] MEDS: APIXABAN 2.5 MG TABLET PO SCH ×2 (10:21→22:22)
[2022-09-21] MEDS ORDERED: LACTATED RINGERS SOLUTION 1,000 ML/1,000 ML INFUS.BAG IV ONE (10:48)
[2022-09-21] MEDS: ONDANSETRON 4 MG/2 ML VIAL IVPUSH PRN (11:30)
[2022-09-21] MEDS: LACTATED RINGERS SOLUTION 1,000 ML/1,000 ML INFUS.BAG IV SCH ×2 (12:18→18:12)
[2022-09-21] MEDS: AMPICILLIN NA/SULBACTAM NA 1.5 GM in SODIUM CHLORIDE 100 ML IVPB SCH ×2 (15:25→21:21)
[2022-09-21] MEDS: PORTA CATH FLUSH 10 ML IVPUSH PRN (15:50)
[2022-09-22] MEDS: MAG HYDROX/AL HYDROX/SIMETH 30 ML UNIT-DOSE CUP PO SCH ×4 (00:21→17:14)
[2022-09-22] MEDS: AMPICILLIN NA/SULBACTAM NA 1.5 GM in SODIUM CHLORIDE 100 ML IVPB SCH ×4 (02:34→22:36)
[2022-09-22] MEDS: oxyCODONE HCL 5 MG TABLET PO PRN ×3 (02:43→20:07)
[2022-09-22] MEDS: LACTATED RINGERS SOLUTION 1,000 ML/1,000 ML INFUS.BAG IV SCH ×3 (04:54→16:40)
[2022-09-22] MEDS: POLYETHYLENE GLYCOL (HEALTHYLAX) 3350 17 GM PACKET PO SCH (05:00)
[2022-09-22 09:01] LABS: ALBUMIN 2.4 g/dl (3.4-5.0); BLOOD UREA NITROGEN 12.3 mg/dL (7-18); CALCIUM 8.6 mg/dL (8.5-10.1); MAGNESIUM 1.9 mg/dL (1.8-2.4)
[2022-09-22 09:04] LABS: CREATININE 0.4 mg/dL (0.55-1.3); PHOSPHOROUS 2.5 mg/dL (2.5-4.9)
[2022-09-22 09:06] LABS: BILIRUBIN,TOTAL 0.3 mg/dL (0.2-1); TOT PROT 5.3 g/dl (6.4-8.2)
[2022-09-22] MEDS ORDERED: SODIUM CHLORIDE 500 ML IV STA (09:30)
[2022-09-22] MEDS ORDERED: POLYETHYLENE GLYCOL (HEALTHYLAX) 3350 17 GM PACKET PO PRN (09:31)
[2022-09-22] MEDS: DOCUSATE SODIUM 100 MG CAPSULE (FP) PO SCH ×2 (10:07→22:36)
[2022-09-22] MEDS: APIXABAN 2.5 MG TABLET PO SCH ×2 (10:07→22:36)
[2022-09-22] MEDS: LACTOBACILLUS ACIDOPHILUS 1 TABLET PO SCH (10:07)
[2022-09-22 12:07] LABS: BODY FLUID ALBUMIN 1.9 g/dL (Not Estab.)
[2022-09-22 13:07] LABS: BODY FLUID ALBUMIN 1.8 g/dL (Not Estab.)
[2022-09-23] MEDS: LORazepam 0.5 MG TABLET PO PRN (01:14)
[2022-09-23] MEDS: MAG HYDROX/AL HYDROX/SIMETH 30 ML UNIT-DOSE CUP PO SCH ×6 (02:16→23:31)
[2022-09-23] MEDS: LACTATED RINGERS SOLUTION 1,000 ML/1,000 ML INFUS.BAG IV SCH ×3 (02:43→15:42)
[2022-09-23] MEDS: AMPICILLIN NA/SULBACTAM NA 1.5 GM in SODIUM CHLORIDE 100 ML IVPB SCH ×4 (02:49→20:15)
[2022-09-23] MEDS: oxyCODONE HCL 5 MG TABLET PO PRN ×3 (04:01→20:14)
[2022-09-23 09:14] LABS: BASO % 0.4 % (0-2.0); EOS % 1.2 % (0-4.5); HEMATOCRIT 22.7 % (32.4-45.2); HEMOGLOBIN 7.7 GM/dL (10.7-15.3); MCH 30.8 pg (25.7-33.7); MCHC 33.8 g/dl (32.0-36.0); MEAN CELL VOLUME 91.2 fl (80-96); MEAN PLT VOLUME 6.8 fl (7.5-11.1); MONO % 14.9 % (3.8-10.2); NEUT % 64.5 % (42.8-82.8); PLATELET COUNT 197 10^3/uL (134-434); RBC 2.49 M/mm3 (3.60-5.2); RDW 16.3 % (11.6-15.6); WHITE BLOOD COUNT 3.9 K/mm3 (4.0-10.0)
[2022-09-23 09:34] LABS: ALBUMIN 2.4 g/dl (3.4-5.0); BLOOD UREA NITROGEN 10.1 mg/dL (7-18); CALCIUM 8.8 mg/dL (8.5-10.1)
[2022-09-23 09:38] LABS: CREATININE 0.4 mg/dL (0.55-1.3)
[2022-09-23 09:39] LABS: BILIRUBIN,TOTAL 0.3 mg/dL (0.2-1); TOT PROT 5.4 g/dl (6.4-8.2)
[2022-09-23] MEDS: DOCUSATE SODIUM 100 MG CAPSULE (FP) PO SCH ×2 (10:30→22:44)
[2022-09-23] MEDS: LACTOBACILLUS ACIDOPHILUS 1 TABLET PO SCH (10:30)
[2022-09-23] MEDS: APIXABAN 2.5 MG TABLET PO SCH ×2 (10:31→22:44)
[2022-09-23] MEDS: ACETAMINOPHEN 325 MG TABLET (FP) PO PRN (16:50)
[2022-09-23 20:08] VITALS: BMI 22.9
[2022-09-24] MEDS: ACETAMINOPHEN 325 MG TABLET (FP) PO PRN ×2 (00:44→16:24)
[2022-09-24] MEDS: AMPICILLIN NA/SULBACTAM NA 1.5 GM in SODIUM CHLORIDE 100 ML IVPB SCH ×4 (02:01→20:58)
[2022-09-24] MEDS: LORazepam 0.5 MG TABLET PO PRN ×4 (02:20→22:05)
[2022-09-24] MEDS: LACTATED RINGERS SOLUTION 1,000 ML/1,000 ML INFUS.BAG IV SCH ×2 (02:34→15:17)
[2022-09-24] MEDS: MAG HYDROX/AL HYDROX/SIMETH 30 ML UNIT-DOSE CUP PO SCH ×3 (05:08→18:23)
[2022-09-24] MEDS: oxyCODONE HCL 5 MG TABLET PO PRN (07:33)
[2022-09-24] MEDS: DOCUSATE SODIUM 100 MG CAPSULE (FP) PO SCH ×2 (10:31→21:02)
[2022-09-24] MEDS: APIXABAN 2.5 MG TABLET PO SCH ×2 (10:31→21:02)
[2022-09-24] MEDS: LACTOBACILLUS ACIDOPHILUS 1 TABLET PO SCH (10:32)
[2022-09-24] MEDS: ONDANSETRON 4 MG/2 ML VIAL IVPUSH PRN (16:23)
[2022-09-25] MEDS: MAG HYDROX/AL HYDROX/SIMETH 30 ML UNIT-DOSE CUP PO SCH ×6 (01:24→18:37)
[2022-09-25] MEDS: ACETAMINOPHEN 325 MG TABLET (FP) PO PRN ×3 (01:24→17:56)
[2022-09-25] MEDS: AMPICILLIN NA/SULBACTAM NA 1.5 GM in SODIUM CHLORIDE 100 ML IVPB SCH ×4 (02:16→21:18)
[2022-09-25] MEDS: LACTATED RINGERS SOLUTION 1,000 ML/1,000 ML INFUS.BAG IV SCH ×2 (05:34→19:47)
[2022-09-25] MEDS: LORazepam 0.5 MG TABLET PO PRN ×3 (09:10→23:36)
[2022-09-25] MEDS: ONDANSETRON 4 MG/2 ML VIAL IVPUSH PRN ×2 (09:10→17:56)
[2022-09-25] MEDS: DOCUSATE SODIUM 100 MG CAPSULE (FP) PO SCH ×2 (10:25→21:19)
[2022-09-25] MEDS: APIXABAN 2.5 MG TABLET PO SCH ×2 (10:25→21:19)
[2022-09-25] MEDS: LACTOBACILLUS ACIDOPHILUS 1 TABLET PO SCH (10:25)
[2022-09-26] MEDS: MAG HYDROX/AL HYDROX/SIMETH 30 ML UNIT-DOSE CUP PO SCH ×6 (00:28→23:09)
[2022-09-26] MEDS: AMPICILLIN NA/SULBACTAM NA 1.5 GM in SODIUM CHLORIDE 100 ML IVPB SCH ×4 (02:13→21:16)
[2022-09-26] MEDS: oxyCODONE HCL 5 MG TABLET PO PRN (08:16)
[2022-09-26 09:24] LABS: BASO % 0.4 % (0-2.0); EOS % 0.5 % (0-4.5); HEMATOCRIT 23.4 % (32.4-45.2); HEMOGLOBIN 8.1 GM/dL (10.7-15.3); LYMPH % 15.5 % (8-40); MCHC 34.5 g/dl (32.0-36.0); MEAN CELL VOLUME 89.9 fl (80-96); MEAN PLT VOLUME 7.4 fl (7.5-11.1); MONO % 11.9 % (3.8-10.2); NEUT % 71.7 % (42.8-82.8); PLATELET COUNT 213 10^3/uL (134-434); RDW 16.5 % (11.6-15.6); WHITE BLOOD COUNT 4.5 K/mm3 (4.0-10.0)
[2022-09-26] MEDS: APIXABAN 2.5 MG TABLET PO SCH (09:31)
[2022-09-26] MEDS: DOCUSATE SODIUM 100 MG CAPSULE (FP) PO SCH ×2 (09:33→21:16)
[2022-09-26] MEDS: LACTOBACILLUS ACIDOPHILUS 1 TABLET PO SCH (09:34)
[2022-09-26 09:48] LABS: BLOOD UREA NITROGEN 7.5 mg/dL (7-18); CALCIUM 8.5 mg/dL (8.5-10.1)
[2022-09-26 09:51] LABS: CREATININE 0.5 mg/dL (0.55-1.3)
[2022-09-26] MEDS ORDERED: oxyCODONE HCL 5 MG TABLET PO PRN ×2 (13:55→13:56)
[2022-09-26] MEDS: ONDANSETRON 4 MG/2 ML VIAL IVPUSH PRN (14:10)
[2022-09-26] MEDS ORDERED: MELATONIN 5 MG TABLETS PO PRN (18:35)
[2022-09-26] MEDS: POLYETHYLENE GLYCOL (HEALTHYLAX) 3350 17 GM PACKET PO SCH (21:16)
[2022-09-26] MEDS: LORazepam 0.5 MG TABLET PO SCH (21:16)
[2022-09-26] MEDS ORDERED: MIRTAZAPINE 15 MG TABLET (FP) PO SCH (22:00)
[2022-09-27] MEDS: AMPICILLIN NA/SULBACTAM NA 1.5 GM in SODIUM CHLORIDE 100 ML IVPB SCH ×4 (01:59→20:07)
[2022-09-27] MEDS: MAG HYDROX/AL HYDROX/SIMETH 30 ML UNIT-DOSE CUP PO SCH ×3 (05:34→18:31)
[2022-09-27] MEDS ORDERED: ONDANSETRON 4 MG/2 ML VIAL ONE (10:34)
[2022-09-27] MEDS ORDERED: FENTANYL CITRATE/PF 50 MCG/ML VIAL ONE ×5 (10:34→12:12)
[2022-09-27] MEDS ORDERED: LIDOCAINE HCL 2% 100 MG/5 ML DISP.SYRIN ONE (10:34)
[2022-09-27] MEDS ORDERED: PROPOFOL 20 ML ONE (10:34)
[2022-09-27] MEDS ORDERED: DEXAMETHASONE SOD PHOSPHATE 4 MG/1 ML VIAL ONE (10:34)
[2022-09-27] MEDS ORDERED: SUCCINYLCHOLINE CHLORIDE 200 MG/10 ML SYRINGE ONE (10:35)
[2022-09-27] MEDS ORDERED: ROCURONIUM BROMIDE 50 MG/5 ML SYRINGE ONE (10:35)
[2022-09-27 10:48] LABS: BASO % 0.3 % (0-2.0); EOS % 0.3 % (0-4.5); HEMATOCRIT 22.4 % (32.4-45.2); HEMOGLOBIN 7.7 GM/dL (10.7-15.3); LYMPH % 14.9 % (8-40); MCH 30.8 pg (25.7-33.7); MCHC 34.4 g/dl (32.0-36.0); MEAN CELL VOLUME 89.6 fl (80-96); MEAN PLT VOLUME 7.6 fl (7.5-11.1); NEUT % 66.5 % (42.8-82.8); PLATELET COUNT 235 10^3/uL (134-434); RDW 16.8 % (11.6-15.6); WHITE BLOOD COUNT 5.2 K/mm3 (4.0-10.0)
[2022-09-27] MEDS ORDERED: DEXMEDETOMIDINE HCL 200 MCG/2 ML IVPB ONE (10:53)
[2022-09-27] MEDS ORDERED: KETAMINE HCL 500 MG/10 ML VIAL ONE (10:57)
[2022-09-27 11:06] LABS: CALCIUM 8.4 mg/dL (8.5-10.1)
[2022-09-27 11:07] LABS: BLOOD UREA NITROGEN 8.5 mg/dL (7-18)
[2022-09-27 11:10] LABS: CREATININE 0.4 mg/dL (0.55-1.3)
[2022-09-27] MEDS ORDERED: LACTATED RINGERS SOLUTION 1,000 ML IV SCH (11:45)
[2022-09-27] MEDS ORDERED: ONDANSETRON 4 MG/2 ML VIAL IVPUSH PRN (11:45)
[2022-09-27] MEDS ORDERED: SIMETHICONE 80 MG TAB.CHEW (FP) PO PRN (11:55)
[2022-09-27] MEDS ORDERED: ACETAMINOPHEN 325 MG TABLET (FP) PO PRN (11:55)
[2022-09-27] MEDS ORDERED: PORTA CATH FLUSH 10 ML IVPUSH PRN (11:55)
[2022-09-27] MEDS ORDERED: MELATONIN 5 MG TABLETS PO PRN (11:55)
[2022-09-27] MEDS: FENTANYL CITRATE/PF 50 MCG/ML VIAL IVPUSH PRN ×7 (11:56→12:19)
[2022-09-27] MEDS: LORazepam 0.5 MG TABLET PO SCH ×2 (15:09→21:33)
[2022-09-27] MEDS: LACTOBACILLUS ACIDOPHILUS 1 TABLET PO SCH (15:09)
[2022-09-27] MEDS: DOCUSATE SODIUM 100 MG CAPSULE (FP) PO SCH ×2 (15:10→21:33)
[2022-09-27] MEDS: POLYETHYLENE GLYCOL (HEALTHYLAX) 3350 17 GM PACKET PO SCH ×2 (15:10→21:34)
[2022-09-27] MEDS: AMINO ACIDS/PROTEIN HYDROLYS 30 ML LIQUID.PKT PO SCH (18:31)
[2022-09-27] MEDS: oxyCODONE HCL 5 MG TABLET PO PRN (20:06)
[2022-09-27] MEDS: MIRTAZAPINE 15 MG TABLET (FP) PO SCH (21:33)
[2022-09-27] MEDS: APIXABAN 2.5 MG TABLET PO SCH (21:33)
[2022-09-28] MEDS: MAG HYDROX/AL HYDROX/SIMETH 30 ML UNIT-DOSE CUP PO SCH ×5 (02:03→23:06)
[2022-09-28] MEDS: AMPICILLIN NA/SULBACTAM NA 1.5 GM in SODIUM CHLORIDE 100 ML IVPB SCH ×4 (02:03→21:22)
[2022-09-28] MEDS: AMINO ACIDS/PROTEIN HYDROLYS 30 ML LIQUID.PKT PO SCH ×2 (08:58→18:00)
[2022-09-28] MEDS: LORazepam 0.5 MG TABLET PO SCH ×2 (10:06→21:23)
[2022-09-28] MEDS: APIXABAN 2.5 MG TABLET PO SCH ×2 (10:07→21:23)
[2022-09-28] MEDS: DOCUSATE SODIUM 100 MG CAPSULE (FP) PO SCH ×2 (10:07→21:23)
[2022-09-28] MEDS: LACTOBACILLUS ACIDOPHILUS 1 TABLET PO SCH (10:07)
[2022-09-28] MEDS: POLYETHYLENE GLYCOL (HEALTHYLAX) 3350 17 GM PACKET PO SCH ×2 (10:07→21:23)
[2022-09-28] MEDS: oxyCODONE HCL 5 MG TABLET PO PRN (15:01)
[2022-09-28] MEDS: MIRTAZAPINE 15 MG TABLET (FP) PO SCH (21:23)
[2022-09-29] MEDS: AMPICILLIN NA/SULBACTAM NA 1.5 GM in SODIUM CHLORIDE 100 ML IVPB SCH ×4 (02:24→22:05)
[2022-09-29] MEDS: MAG HYDROX/AL HYDROX/SIMETH 30 ML UNIT-DOSE CUP PO SCH ×3 (05:37→18:38)
[2022-09-29] MEDS: oxyCODONE HCL 5 MG TABLET PO PRN ×3 (08:35→22:51)
[2022-09-29] MEDS: AMINO ACIDS/PROTEIN HYDROLYS 30 ML LIQUID.PKT PO SCH ×2 (08:38→18:38)
[2022-09-29 09:47] LABS: BASO % 0.4 % (0-2.0); EOS % 0.8 % (0-4.5); HEMATOCRIT 21.2 % (32.4-45.2); HEMOGLOBIN 7.4 GM/dL (10.7-15.3); LYMPH % 19.4 % (8-40); MCH 31.7 pg (25.7-33.7); MCHC 35.1 g/dl (32.0-36.0); MEAN CELL VOLUME 90.1 fl (80-96); MEAN PLT VOLUME 6.5 fl (7.5-11.1); MONO % 17.4 % (3.8-10.2); PLATELET COUNT 200 10^3/uL (134-434); RBC 2.35 M/mm3 (3.60-5.2); WHITE BLOOD COUNT 4.4 K/mm3 (4.0-10.0)
[2022-09-29 10:32] LABS: BLOOD UREA NITROGEN 9.8 mg/dL (7-18); CALCIUM 8.1 mg/dL (8.5-10.1)
[2022-09-29 10:36] LABS: CREATININE 0.4 mg/dL (0.55-1.3)
[2022-09-29] MEDS: POLYETHYLENE GLYCOL (HEALTHYLAX) 3350 17 GM PACKET PO SCH ×2 (12:58→22:07)
[2022-09-29] MEDS: LACTOBACILLUS ACIDOPHILUS 1 TABLET PO SCH (12:58)
[2022-09-29] MEDS: APIXABAN 2.5 MG TABLET PO SCH ×2 (12:59→22:07)
[2022-09-29] MEDS: LORazepam 0.5 MG TABLET PO SCH (12:59)
[2022-09-29] MEDS: DOCUSATE SODIUM 100 MG CAPSULE (FP) PO SCH ×2 (13:00→22:07)
[2022-09-29] MEDS: LORazepam 0.5 MG TABLET PO PRN (18:33)
[2022-09-29] MEDS: MIRTAZAPINE 15 MG TABLET (FP) PO SCH (22:07)
[2022-09-30] MEDS: MAG HYDROX/AL HYDROX/SIMETH 30 ML UNIT-DOSE CUP PO SCH ×4 (01:11→17:00)
[2022-09-30] MEDS: AMPICILLIN NA/SULBACTAM NA 1.5 GM in SODIUM CHLORIDE 100 ML IVPB SCH ×4 (02:04→22:09)
[2022-09-30] MEDS: oxyCODONE HCL 5 MG TABLET PO PRN (06:17)
[2022-09-30 08:25] LABS: BASO % 1.4 % (0-2.0); EOS % 1.3 % (0-4.5); HEMATOCRIT 22.1 % (32.4-45.2); HEMOGLOBIN 7.5 GM/dL (10.7-15.3); LYMPH % 16.4 % (8-40); MCH 30.7 pg (25.7-33.7); MCHC 33.9 g/dl (32.0-36.0); MEAN CELL VOLUME 90.5 fl (80-96); MEAN PLT VOLUME 6.9 fl (7.5-11.1); MONO % 16.8 % (3.8-10.2); NEUT % 64.1 % (42.8-82.8); PLATELET COUNT 207 10^3/uL (134-434); RBC 2.45 M/mm3 (3.60-5.2); RDW 16.9 % (11.6-15.6); WHITE BLOOD COUNT 4.5 K/mm3 (4.0-10.0)
[2022-09-30 08:46] LABS: CALCIUM 8.6 mg/dL (8.5-10.1)
[2022-09-30 08:47] LABS: BLOOD UREA NITROGEN 8.9 mg/dL (7-18)
[2022-09-30 08:50] LABS: CREATININE 0.3 mg/dL (0.55-1.3)
[2022-09-30] MEDS: LACTOBACILLUS ACIDOPHILUS 1 TABLET PO SCH (09:23)
[2022-09-30] MEDS: AMINO ACIDS/PROTEIN HYDROLYS 30 ML LIQUID.PKT PO SCH ×2 (09:23→16:57)
[2022-09-30] MEDS: APIXABAN 2.5 MG TABLET PO SCH ×2 (09:24→22:07)
[2022-09-30] MEDS: DOCUSATE SODIUM 100 MG CAPSULE (FP) PO SCH ×2 (09:24→22:14)
[2022-09-30] MEDS: POLYETHYLENE GLYCOL (HEALTHYLAX) 3350 17 GM PACKET PO SCH ×2 (09:24→22:14)
[2022-09-30] MEDS: LORazepam 0.5 MG TABLET PO PRN (09:35)
[2022-09-30] MEDS: MIRTAZAPINE 15 MG TABLET (FP) PO SCH (22:07)
[2022-10-01] MEDS: MAG HYDROX/AL HYDROX/SIMETH 30 ML UNIT-DOSE CUP PO SCH ×4 (01:07→19:35)
[2022-10-01] MEDS: oxyCODONE HCL 5 MG TABLET PO PRN ×2 (02:16→12:47)
[2022-10-01] MEDS: AMPICILLIN NA/SULBACTAM NA 1.5 GM in SODIUM CHLORIDE 100 ML IVPB SCH ×4 (02:17→22:43)
[2022-10-01] MEDS: AMINO ACIDS/PROTEIN HYDROLYS 30 ML LIQUID.PKT PO SCH ×2 (08:34→18:38)
[2022-10-01] MEDS: ONDANSETRON 4 MG/2 ML VIAL IVPUSH PRN (08:34)
[2022-10-01 08:38] LABS: BASO % 0.6 % (0-2.0); EOS % 0.9 % (0-4.5); HEMATOCRIT 22.5 % (32.4-45.2); HEMOGLOBIN 7.8 GM/dL (10.7-15.3); LYMPH % 14.1 % (8-40); MCH 30.9 pg (25.7-33.7); MCHC 34.4 g/dl (32.0-36.0); MEAN CELL VOLUME 89.7 fl (80-96); MEAN PLT VOLUME 6.8 fl (7.5-11.1); NEUT % 69.4 % (42.8-82.8); PLATELET COUNT 209 10^3/uL (134-434); RBC 2.51 M/mm3 (3.60-5.2); RDW 16.7 % (11.6-15.6); WHITE BLOOD COUNT 5.2 K/mm3 (4.0-10.0)
[2022-10-01 08:47] LABS: CALCIUM 8.4 mg/dL (8.5-10.1)
[2022-10-01 08:48] LABS: BLOOD UREA NITROGEN 9.4 mg/dL (7-18)
[2022-10-01 08:51] LABS: CREATININE 0.4 mg/dL (0.55-1.3)
[2022-10-01] MEDS: LACTOBACILLUS ACIDOPHILUS 1 TABLET PO SCH (10:20)
[2022-10-01] MEDS: POLYETHYLENE GLYCOL (HEALTHYLAX) 3350 17 GM PACKET PO SCH ×2 (10:20→22:45)
[2022-10-01] MEDS: DOCUSATE SODIUM 100 MG CAPSULE (FP) PO SCH ×2 (10:20→22:44)
[2022-10-01 10:33] LABS: INR 1.52 (0.83-1.09); PROTHROMBIN TIME (PATIENT) 17.5 SEC (9.7-13.0)
[2022-10-01 10:36] LABS: ACTIVATED PTT 32.4 SECONDS (25.2-36.5)
[2022-10-01] MEDS: APIXABAN 2.5 MG TABLET PO SCH ×2 (11:55→22:44)
[2022-10-01] MEDS: MIRTAZAPINE 15 MG TABLET (FP) PO SCH (22:45)
[2022-10-02] MEDS: MAG HYDROX/AL HYDROX/SIMETH 30 ML UNIT-DOSE CUP PO SCH ×4 (01:12→17:53)
[2022-10-02] MEDS: oxyCODONE HCL 5 MG TABLET PO PRN ×3 (02:01→23:50)
[2022-10-02] MEDS: AMPICILLIN NA/SULBACTAM NA 1.5 GM in SODIUM CHLORIDE 100 ML IVPB SCH ×4 (02:03→20:23)
[2022-10-02] MEDS: LACTOBACILLUS ACIDOPHILUS 1 TABLET PO SCH (10:24)
[2022-10-02] MEDS: APIXABAN 2.5 MG TABLET PO SCH ×2 (10:24→22:36)
[2022-10-02] MEDS: AMINO ACIDS/PROTEIN HYDROLYS 30 ML LIQUID.PKT PO SCH (10:24)
[2022-10-02] MEDS: POLYETHYLENE GLYCOL (HEALTHYLAX) 3350 17 GM PACKET PO SCH ×3 (10:24→22:41)
[2022-10-02] MEDS: DOCUSATE SODIUM 100 MG CAPSULE (FP) PO SCH ×3 (10:25→22:36)
[2022-10-02 13:15] LABS: BASO % 0.4 % (0-2.0); EOS % 0.9 % (0-4.5); HEMATOCRIT 20.9 % (32.4-45.2); HEMOGLOBIN 7.1 GM/dL (10.7-15.3); LYMPH % 13.9 % (8-40); MCH 30.8 pg (25.7-33.7); MCHC 34.1 g/dl (32.0-36.0); MEAN CELL VOLUME 90.4 fl (80-96); MEAN PLT VOLUME 6.4 fl (7.5-11.1); MONO % 17.7 % (3.8-10.2); NEUT % 67.1 % (42.8-82.8); PLATELET COUNT 195 10^3/uL (134-434); RBC 2.31 M/mm3 (3.60-5.2); WHITE BLOOD COUNT 5.1 K/mm3 (4.0-10.0)
[2022-10-02 13:23] LABS: ALBUMIN 2.4 g/dl (3.4-5.0); BLOOD UREA NITROGEN 10.8 mg/dL (7-18); CALCIUM 8.4 mg/dL (8.5-10.1)
[2022-10-02 13:26] LABS: CREATININE 0.4 mg/dL (0.55-1.3)
[2022-10-02 13:28] LABS: BILIRUBIN,TOTAL 0.3 mg/dL (0.2-1)
[2022-10-02 13:29] LABS: TOT PROT 5.2 g/dl (6.4-8.2)
[2022-10-02] MEDS: MIRTAZAPINE 15 MG TABLET (FP) PO SCH (22:37)
[2022-10-03] MEDS: AMPICILLIN NA/SULBACTAM NA 1.5 GM in SODIUM CHLORIDE 100 ML IVPB SCH ×3 (04:00→14:37)
[2022-10-03] MEDS: MAG HYDROX/AL HYDROX/SIMETH 30 ML UNIT-DOSE CUP PO SCH ×4 (04:23→17:29)
[2022-10-03 06:31] VITALS: PULSE 89
[2022-10-03] MEDS: oxyCODONE HCL 5 MG TABLET PO PRN ×2 (08:47→18:32)
[2022-10-03] MEDS: DOCUSATE SODIUM 100 MG CAPSULE (FP) PO SCH (09:58)
[2022-10-03] MEDS: APIXABAN 2.5 MG TABLET PO SCH (09:58)
[2022-10-03] MEDS: LACTOBACILLUS ACIDOPHILUS 1 TABLET PO SCH (09:59)
[2022-10-03] MEDS: POLYETHYLENE GLYCOL (HEALTHYLAX) 3350 17 GM PACKET PO SCH (09:59)
[2022-10-03 14:29] VITALS: BP 121/68; RESP 20; TEMP 97.6
[2022-10-03] MEDS: ONDANSETRON 4 MG/2 ML VIAL IVPUSH PRN (14:36)
== END 2022-10-03 20:50 | DRG 908 ==
LOC: JER 10:06 → JERBED 14:32 → OBSVTOIN 16:23 → J7W 19:39
PROVIDERS: ADMIT Internal Medicine; ATTEND Internal Medicine
PROC: 0J9830Z Drainage of Abdomen Subcutaneous Tissue and Fascia with Drainage Device, Percutaneous Approach (ICD-10-PCS; 2022-09-20)
PROC: 0WJF0ZZ Inspection of Abdominal Wall, Open Approach (ICD-10-PCS; principal; 2022-09-27 09:30)
DX: L76.82 Other postprocedural complications of skin and subcutaneous tissue (principal); L02.211 Cutaneous abscess of abdominal wall; L76.34 Postprocedural seroma of skin and subcutaneous tissue following other procedure; F41.8 Other specified anxiety disorders; I10 Essential (primary) hypertension; E78.5 Hyperlipidemia, unspecified; Y83.9 Surgical procedure, unspecified as the cause of abnormal reaction of the patient, or of later complication, without mention of misadventure at the time of the procedure; C54.1 Malignant neoplasm of endometrium; R10.9 Unspecified abdominal pain
CPT/HCPCS: 0241U-QW; 10030; 36415; 71045-TC-FY; 72170-TC-FY; 74018-TC-FY; 74177-TC; 76705-TC; 80048; 80053; 82042; 82150; 82945; 82962; 83605; 83615; 83735; 83986; 84100; 84157; 84478; 84560; 85025; 85610; 85730; 86850; 86900; 86901; 87040; 87070; 87075; 87076; 87102; 87116; 87186; 87205; 87206; 87210; 88108; 88305-TC; 93005; 93010; 94760; 97116-GP; 99285-25; C1729; C1769; C9803-CS; G0378; Q9967; U0003; U0005

== ENCOUNTER 2022-10-04 23:32 | Inpatient (IN) | payer OTHER, BC ==
[2022-10-05] MEDS ORDERED: ACETAMINOPHEN 325 MG TABLET (FP) PO ONE (00:15)
[2022-10-05] MEDS ORDERED: ACETAMINOPHEN 325 MG TABLET (FP) ONE (00:41)
[2022-10-05] MEDS ORDERED: ACETAMINOPHEN 1000 MG/100 ML BAG IVPB ONE (01:16)
[2022-10-05] MEDS ORDERED: ACETAMINOPHEN INJECTION 100 ML IVPB ONE (01:35)
[2022-10-05 01:46] LABS: BASO % 0.3 % (0-2.0); EOS % 0.8 % (0-4.5); HEMATOCRIT 22.2 % (32.4-45.2); HEMOGLOBIN 7.6 GM/dL (10.7-15.3); LYMPH % 14.3 % (8-40); MCH 30.6 pg (25.7-33.7); MCHC 34.4 g/dl (32.0-36.0); MEAN CELL VOLUME 88.9 fl (80-96); MEAN PLT VOLUME 6.5 fl (7.5-11.1); MONO % 15.6 % (3.8-10.2); PLATELET COUNT 187 10^3/uL (134-434); RBC 2.49 M/mm3 (3.60-5.2); RDW 16.8 % (11.6-15.6); WHITE BLOOD COUNT 4.9 K/mm3 (4.0-10.0)
[2022-10-05 02:00] LABS: INR 1.49 (0.83-1.09); PROTHROMBIN TIME (PATIENT) 17.2 SEC (9.7-13.0)
[2022-10-05 02:03] LABS: ACTIVATED PTT 32.9 SECONDS (25.2-36.5)
[2022-10-05 02:14] LABS: ALBUMIN 2.5 g/dl (3.4-5.0); BLOOD UREA NITROGEN 8.8 mg/dL (7-18); CALCIUM 8.7 mg/dL (8.5-10.1)
[2022-10-05 02:18] LABS: CREATININE 0.4 mg/dL (0.55-1.3)
[2022-10-05 02:19] LABS: BILIRUBIN,TOTAL 0.7 mg/dL (0.2-1); TOT PROT 5.8 g/dl (6.4-8.2)
[2022-10-05] MEDS ORDERED: SODIUM CHLORIDE 0.9% 500 ML INFUS.BAG IV ONE (03:24)
[2022-10-05] MEDS ORDERED: ACETAMINOPHEN 1000 MG/100 ML BAG IVPB PRN (08:00)
[2022-10-05] MEDS ORDERED: oxyCODONE HCL 5 MG TABLET ONE ×2 (08:23→16:38)
[2022-10-05] MEDS: oxyCODONE HCL 5 MG TABLET PO PRN ×3 (08:34→22:33)
[2022-10-05 08:40] LABS: BASO % 0.6 % (0-2.0); EOS % 1.1 % (0-4.5); HEMATOCRIT 23.2 % (32.4-45.2); HEMOGLOBIN 8.2 GM/dL (10.7-15.3); LYMPH % 19.2 % (8-40); MCH 31.5 pg (25.7-33.7); MCHC 35.2 g/dl (32.0-36.0); MEAN CELL VOLUME 89.6 fl (80-96); MEAN PLT VOLUME 6.5 fl (7.5-11.1); NEUT % 60.1 % (42.8-82.8); PLATELET COUNT 191 10^3/uL (134-434); RBC 2.59 M/mm3 (3.60-5.2); RDW 16.5 % (11.6-15.6); WHITE BLOOD COUNT 4.5 K/mm3 (4.0-10.0)
[2022-10-05 08:59] LABS: CALCIUM 8.7 mg/dL (8.5-10.1)
[2022-10-05 09:00] LABS: ALBUMIN 2.7 g/dl (3.4-5.0); MAGNESIUM 1.8 mg/dL (1.8-2.4)
[2022-10-05 09:02] LABS: CREATININE 0.4 mg/dL (0.55-1.3); PHOSPHOROUS 2.8 mg/dL (2.5-4.9)
[2022-10-05 09:04] LABS: BILIRUBIN,TOTAL 0.4 mg/dL (0.2-1); TOT PROT 5.9 g/dl (6.4-8.2)
[2022-10-05] MEDS: LACTOBACILLUS ACIDOPHILUS 1 TABLET PO SCH (09:47)
[2022-10-05 16:21] VITALS: BMI 28.7
[2022-10-05] MEDS: POLYETHYLENE GLYCOL (HEALTHYLAX) 3350 17 GM PACKET PO SCH (16:35)
[2022-10-05] MEDS: APIXABAN 2.5 MG TABLET PO SCH (21:42)
[2022-10-05] MEDS ORDERED: APIXABAN 2.5 MG TABLET ONE (21:44)
[2022-10-06] MEDS: POLYETHYLENE GLYCOL (HEALTHYLAX) 3350 17 GM PACKET PO SCH ×3 (00:50→13:39)
[2022-10-06] MEDS: oxyCODONE HCL 5 MG TABLET PO PRN ×2 (10:19→21:56)
[2022-10-06] MEDS: LACTOBACILLUS ACIDOPHILUS 1 TABLET PO SCH (10:19)
[2022-10-06] MEDS: APIXABAN 2.5 MG TABLET PO SCH ×2 (10:19→21:52)
[2022-10-06 12:40] LABS: BASO % 0.2 % (0-2.0); EOS % 0.6 % (0-4.5); HEMATOCRIT 21.7 % (32.4-45.2); HEMOGLOBIN 7.4 GM/dL (10.7-15.3); LYMPH % 13.7 % (8-40); MCH 30.4 pg (25.7-33.7); MCHC 34.2 g/dl (32.0-36.0); MEAN PLT VOLUME 6.5 fl (7.5-11.1); MONO % 12.4 % (3.8-10.2); NEUT % 73.1 % (42.8-82.8); PLATELET COUNT 181 10^3/uL (134-434); RBC 2.44 M/mm3 (3.60-5.2); WHITE BLOOD COUNT 4.8 K/mm3 (4.0-10.0)
[2022-10-06 13:00] LABS: ALBUMIN 2.5 g/dl (3.4-5.0); BLOOD UREA NITROGEN 7.6 mg/dL (7-18); CALCIUM 8.4 mg/dL (8.5-10.1)
[2022-10-06 13:02] LABS: CREATININE 0.4 mg/dL (0.55-1.3)
[2022-10-06 13:04] LABS: BILIRUBIN,TOTAL 0.4 mg/dL (0.2-1); TOT PROT 5.6 g/dl (6.4-8.2)
[2022-10-06] MEDS: HYDROmorphone HCl 2 MG/ML VIAL IVPB PRN (15:57)
[2022-10-06] MEDS: MELATONIN 5 MG TABLETS PO PRN (21:52)
[2022-10-07] MEDS: POLYETHYLENE GLYCOL (HEALTHYLAX) 3350 17 GM PACKET PO SCH ×3 (00:06→13:48)
[2022-10-07] MEDS: HYDROmorphone HCl 2 MG/ML VIAL IVPB PRN ×3 (00:10→19:28)
[2022-10-07] MEDS: oxyCODONE HCL 5 MG TABLET PO PRN ×3 (06:25→21:58)
[2022-10-07 07:45] LABS: BASO % 0.3 % (0-2.0); EOS % 0.8 % (0-4.5); HEMATOCRIT 24.6 % (32.4-45.2); HEMOGLOBIN 8.5 GM/dL (10.7-15.3); LYMPH % 9.5 % (8-40); MCH 30.7 pg (25.7-33.7); MCHC 34.5 g/dl (32.0-36.0); MEAN CELL VOLUME 89.1 fl (80-96); MEAN PLT VOLUME 6.6 fl (7.5-11.1); NEUT % 77.4 % (42.8-82.8); PLATELET COUNT 203 10^3/uL (134-434); RBC 2.77 M/mm3 (3.60-5.2); WHITE BLOOD COUNT 5.7 K/mm3 (4.0-10.0)
[2022-10-07 08:16] LABS: CALCIUM 9.1 mg/dL (8.5-10.1)
[2022-10-07 08:17] LABS: ALBUMIN 2.8 g/dl (3.4-5.0); BLOOD UREA NITROGEN 8.2 mg/dL (7-18)
[2022-10-07 08:18] LABS: CREATININE 0.5 mg/dL (0.55-1.3)
[2022-10-07 08:20] LABS: BILIRUBIN,TOTAL 0.6 mg/dL (0.2-1); TOT PROT 6.3 g/dl (6.4-8.2)
[2022-10-07] MEDS: LEVOTHYROXINE NA 50 MCG TABLET (FP) PO SCH (09:46)
[2022-10-07] MEDS: APIXABAN 2.5 MG TABLET PO SCH ×2 (09:47→21:58)
[2022-10-07] MEDS: LACTOBACILLUS ACIDOPHILUS 1 TABLET PO SCH (09:47)
[2022-10-07] MEDS: MELATONIN 5 MG TABLETS PO PRN (21:57)
[2022-10-08] MEDS: HYDROmorphone HCl 2 MG/ML VIAL IVPB PRN ×2 (03:32→21:44)
[2022-10-08] MEDS: LEVOTHYROXINE NA 50 MCG TABLET (FP) PO SCH (06:36)
[2022-10-08] MEDS: POLYETHYLENE GLYCOL (HEALTHYLAX) 3350 17 GM PACKET PO SCH ×3 (06:38→21:44)
[2022-10-08] MEDS: LACTOBACILLUS ACIDOPHILUS 1 TABLET PO SCH (10:14)
[2022-10-08] MEDS: APIXABAN 2.5 MG TABLET PO SCH ×2 (10:14→21:43)
[2022-10-08] MEDS: oxyCODONE HCL 5 MG TABLET PO PRN ×2 (10:16→16:07)
[2022-10-09] MEDS: oxyCODONE HCL 5 MG TABLET PO PRN ×3 (03:51→15:27)
[2022-10-09] MEDS: HYDROmorphone HCl 2 MG/ML VIAL IVPB PRN ×2 (05:40→22:30)
[2022-10-09] MEDS: POLYETHYLENE GLYCOL (HEALTHYLAX) 3350 17 GM PACKET PO SCH ×3 (06:16→21:23)
[2022-10-09] MEDS: LEVOTHYROXINE NA 50 MCG TABLET (FP) PO SCH (06:17)
[2022-10-09] MEDS: APIXABAN 2.5 MG TABLET PO SCH (10:34)
[2022-10-09] MEDS: LACTOBACILLUS ACIDOPHILUS 1 TABLET PO SCH (10:34)
[2022-10-09 13:15] LABS: EOS % 1.5 % (0-4.5); HEMATOCRIT 22.9 % (32.4-45.2); HEMOGLOBIN 7.8 GM/dL (10.7-15.3); LYMPH % 12.2 % (8-40); MCH 30.4 pg (25.7-33.7); MCHC 33.9 g/dl (32.0-36.0); MEAN CELL VOLUME 89.8 fl (80-96); MEAN PLT VOLUME 6.9 fl (7.5-11.1); MONO % 11.4 % (3.8-10.2); NEUT % 73.9 % (42.8-82.8); PLATELET COUNT 212 10^3/uL (134-434); RBC 2.55 M/mm3 (3.60-5.2); RDW 17.1 % (11.6-15.6)
[2022-10-09] MEDS: MIRTAZAPINE 15 MG TABLET (FP) PO SCH (22:13)
[2022-10-10] MEDS: POLYETHYLENE GLYCOL (HEALTHYLAX) 3350 17 GM PACKET PO SCH ×3 (05:38→22:07)
[2022-10-10] MEDS: oxyCODONE HCL 5 MG TABLET PO PRN ×3 (05:39→16:56)
[2022-10-10] MEDS: LEVOTHYROXINE NA 50 MCG TABLET (FP) PO SCH (06:00)
[2022-10-10] MEDS: LACTOBACILLUS ACIDOPHILUS 1 TABLET PO SCH (10:50)
[2022-10-10 16:39] LABS: BASO % 0.8 % (0-2.0); EOS % 1.1 % (0-4.5); HEMATOCRIT 28.5 % (32.4-45.2); HEMOGLOBIN 9.3 GM/dL (10.7-15.3); LYMPH % 16.9 % (8-40); MCH 30.3 pg (25.7-33.7); MCHC 32.8 g/dl (32.0-36.0); MEAN CELL VOLUME 92.6 fl (80-96); MEAN PLT VOLUME 6.9 fl (7.5-11.1); NEUT % 68.2 % (42.8-82.8); PLATELET COUNT 184 10^3/uL (134-434); RBC 3.08 M/mm3 (3.60-5.2); RDW 16.7 % (11.6-15.6)
[2022-10-10] MEDS: HYDROmorphone HCl 2 MG/ML VIAL IVPB PRN (20:55)
[2022-10-10] MEDS: MIRTAZAPINE 15 MG TABLET (FP) PO SCH (21:06)
[2022-10-11] MEDS: oxyCODONE HCL 5 MG TABLET PO PRN ×2 (03:43→09:36)
[2022-10-11 04:24] VITALS: TEMP 97.3
[2022-10-11] MEDS: LEVOTHYROXINE NA 50 MCG TABLET (FP) PO SCH (06:29)
[2022-10-11] MEDS: POLYETHYLENE GLYCOL (HEALTHYLAX) 3350 17 GM PACKET PO SCH (06:30)
[2022-10-11 09:19] VITALS: BP 115/62; PULSE 85; RESP 18
[2022-10-11] MEDS: LACTOBACILLUS ACIDOPHILUS 1 TABLET PO SCH (09:40)
== END 2022-10-11 12:41 | DRG 756 ==
LOC: JER 23:32 → JERBED 10-05 03:24 → J4W 10-05 21:49
PROVIDERS: ADMIT Internal Medicine; ATTEND Family Medicine
PROC: 30233N1 Transfusion of Nonautologous Red Blood Cells into Peripheral Vein, Percutaneous Approach (ICD-10-PCS; principal; 2022-10-09)
DX: C54.1 Malignant neoplasm of endometrium (principal); D64.81 Anemia due to antineoplastic chemotherapy; F41.8 Other specified anxiety disorders; I10 Essential (primary) hypertension; E78.5 Hyperlipidemia, unspecified; R42 Dizziness and giddiness; G62.9 Polyneuropathy, unspecified; E03.9 Hypothyroidism, unspecified; G20 Parkinson's disease; S05.12XA Contusion of eyeball and orbital tissues, left eye, initial encounter; W18.39XA Other fall on same level, initial encounter; Y92.098 Other place in other non-institutional residence as the place of occurrence of the external cause; Z90.49 Acquired absence of other specified parts of digestive tract
CPT/HCPCS: 36415; 36430; 70450-TC; 72125-TC; 80053; 82550; 82607; 82728; 82746; 83540; 83550; 83615; 83735; 84100; 84443; 85025; 85045; 85610; 85730; 86850; 86900; 86901; 86922; 93005; 93010; 97116-GP; 97161-GP; 99285-25; C9803-CS; P9058; U0003; U0005